=== PATIENT | female | born 1990 | race Caucasian/White ===

== ENCOUNTER 2019-09-06 09:07 | Emergency (ER) | payer OTHER, SELFPAY ==
[2019-09-06] MEDS ORDERED: NA CHLORIDE 0.9% 1,000 ML ONE (09:57)
[2019-09-06] MEDS ORDERED: KETOROLAC 30 MG/ML INJ ONE (09:57)
[2019-09-06 10:04] LABS: Hematocrit 39.5 % (36.0-45.0); RBC Red Blood Cell Count 4.66 M/uL (3.86-4.86)
[2019-09-06 10:05] LABS: Absolute Lymphocytes (CBC) 2.2 K/uL (0.7-4.9); Basophils % 0.6 % (0-1.3); Lymphocytes % 23.9 % (15.3-44.8); MPV 8.6 fL (7.6-11.3); Protime INR 1.13
[2019-09-06 10:37] LABS: ALT/SGPT 25 U/L (12-78); AST/SGOT 19 U/L (15-37); Albumin 3.5 g/dL (3.4-5.0); Alkaline Phosphatase 86 U/L (45-117); BUN Blood Urea Nitrogen 13 mg/dL (7-18); Bicarbonate 25 mmol/L (21-32); Bilirubin Direct < 0.1 mg/dL (0-0.2); Bilirubin Total 0.4 mg/dL (0.2-1.0); Glucose Level 93 mg/dL (74-106); Magnesium 2.1 mg/dL (1.8-2.4); NT PRO-BNP 161 pg/mL (<125); Potassium 4.1 mmol/L (3.5-5.1); Protein, Total 7.2 g/dL (6.4-8.2); Sodium Level 141 mmol/L (136-145); Troponin (Emerg Dept Use Only) < 0.02 ng/mL (0.0-0.045)
--- NOTE | 2019-09-06 10:50 | RAD REPORT ---
EXAM DESCRIPTION: RAD - Chest Single View - 09/06/2019 10:39 am CLINICAL HISTORY: Chest pain;SOB Chest pain. COMPARISON: No comparisons FINDINGS: Portable technique limits examination quality. The lungs are grossly clear. The heart is normal in size. No displaced fractures. IMPRESSION: No acute intrathoracic process suspected.
--- NOTE | 2019-09-06 11:48 | RAD REPORT ---
EXAM DESCRIPTION: CT - Chest Angio - 09/06/2019 11:37 am CLINICAL HISTORY: Chest pain. CHEST PAIN COMPARISON: Chest Single View dated 09/06/2019 TECHNIQUE: CT angiogram of the pulmonary arteries was performed with MIP. All CT scans are performed using dose optimization technique as appropriate and may include automated exposure control or mA/KV adjustment according to patient size. FINDINGS: No evidence of pulmonary thromboembolism. No acute aortic finding demonstrated. The lungs are clear. No significant pericardial or pleural fluid. No concerning bony finding. IMPRESSION: No evidence of pulmonary thromboembolism. No acute lung findings.
--- NOTE | 2019-09-06 12:36 | ER ---
Nurse's Notes [facility] Name: Ronel Zamorano Age: 29 yrs Sex: Female : 1990 Arrival Date: 09/06/2019 Time: 09:09 Bed 5 Private MD: Diagnosis: Chest pain, unspecified;Other chest pain Presentation: 09/06 09:17 Presenting complaint: Sharp left sided chest pain and SOB upon waking today. Transition hb of care: patient was not received from another setting of care. Onset of symptoms was September 06, 2019. Risk Assessment: Do you want to hurt yourself or someone else? Patient reports no desire to harm self or others. Initial Sepsis Screen: Does the patient meet any 2 criteria? No. Patient's initial sepsis screen is negative. Does the patient have a suspected source of infection? No. Patient's initial sepsis screen is negative. Care prior to arrival: None. 09:17 Method Of Arrival: Ambulatory hb 09:17 Acuity: BARBARA 3 hb Triage Assessment: 09:20 General: Appears in no apparent distress. comfortable, obese, Behavior is cooperative, bp appropriate for age, anxious. Pain: Complains of pain in chest. EENT: No deficits noted. Neuro: No deficits noted. Cardiovascular: Rhythm is sinus rhythm. Respiratory: No deficits noted. GI: No signs and/or symptoms were reported involving the gastrointestinal system. : No signs and/or symptoms were reported regarding the genitourinary system. Derm: No deficits noted. Musculoskeletal: No deficits noted. 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 - Social history:: Smoking status: Patient/guardian denies using tobacco, Stopped _ months ago 4. - Ebola Screening: : No symptoms or risks identified at this time. Screenin:20 Abuse screen: Denies threats or abuse. Denies injuries from another. Nutritional hb screening: No deficits noted. Tuberculosis screening: No symptoms or risk factors identified. Fall Risk None identified. Assessment: 09:20 General: SEE TRIAGE NOTE. Pain: Pain does not radiate. Pain began 2 hours ago. bp Cardiovascular: Rhythm is sinus rhythm. 09:50 Reassessment: PT ACUTELY BRADYCARDIC, HYPOTENSIVE AND LIGHT-HEADED. MD AT B/S. PT bp PLACED IN SUPINE POSITION AND FLUIDS INITIATED. 10:44 Reassessment: IVF INFUSING, PT STATES RELIEF OF NEAR-SYNCOPE S/S. VS STABLE ON MONITOR. bp 11:56 Reassessment: PT RETURNED FROM RADIOLOGY, CT CHEST RESULTS PENDING. NO ACUTE S/S AT bp THIS TIME. 12:57 Reassessment: PT D/C HOME AMBULATORY WITH FAMILY, DX WITH UNSPECIFIED CHEST PAIN. bp Vital Signs: 09:19 BP 145 / 90; Pulse 81; Resp 24; Temp 97.8; Pulse Ox 100% on R/A; Weight 113.4 kg; hb Height 5 ft. 3 in. (160.02 cm); Pain 8/10; 10:44 BP 119 / 75; Pulse 69; Resp 19; Pulse Ox 100% ; bp 11:56 BP 116 / 63; Pulse 66; Resp 17; Pulse Ox 100% ; bp 12:40 BP 119 / 67; Pulse 66; Resp 18; Temp 98; Pulse Ox 100% ; bp 09:19 Body Mass Index 44.29 (113.40 kg, 160.02 cm) hb ED Course: 09:09 Patient arrived in ED. ag5 09:12 Jim Dietrich MD is Attending Physician. kdr 09:18 Triage completed. hb 09:19 Arm band placed on. hb 09:27 Everett Boothe, LEROY is Primary Nurse. bp 09:50 Inserted saline lock: 22 gauge in right hand, using aseptic technique. Blood collected. bp Patient maintains SpO2 saturation greater than 95% on room air. 09:53 EKG done, by ED staff, reviewed by Jim Dietrich MD. jb1 10:03 Patient has correct armband on for positive identification. Placed in gown. Bed in low bp position. Call light in reach. Side rails up X2. Adult w/ patient. quality assurance monitor final on. Pulse ox on. NIBP on. 10:37 Radiology exam delayed due to lab results not completed at this time. (BUN/Creatinine). nj 10:39 XRAY Chest (1 view) In Process Unspecified. EDMS 11:34 Inserted saline lock: 22 gauge in left antecubital area, using aseptic technique. jb1 11:37 CT Chest Angio In Process Unspecified. EDMS 12:58 No provider procedures requiring assistance completed. IV discontinued, intact, bp bleeding controlled, No redness/swelling at site. Pressure dressing applied. Administered Medications: 09:55 Drug: TORadol - Ketorolac 15 mg Route: IVP; Site: right hand; bp 12:59 Follow up: Response: Pain is decreased bp 09:55 Drug: NS 0.9% 1000 ml Route: IV; Rate: 1 bolus; Site: right hand; bp 12:59 Follow up: IV Status: Completed infusion; IV Intake: 1000ml bp Intake: 12:59 IV: 1000ml; Total: 1000ml. bp Outcome: 12:35 Discharge ordered by MD. kdr 12:58 Discharged to home ambulatory, with family. bp 12:58 Condition: stable 12:58 Discharge instructions given to patient, Instructed on discharge instructions, follow up and referral plans. Demonstrated understanding of instructions, follow-up care. 12:59 Patient left the ED. bp Signatures: Dispatcher [employer] EDMS Carlo Londono jb1 Jim Dietrich MD MD kdr Baxter, Heather, RN RN Jules Flores Brian RN RN Jd Allen ag5
--- NOTE | 2019-09-06 12:36 | EDPHYS ---
Physician Documentation [facility] Name: Ronel Zamorano Age: 29 yrs Sex: Female : 1990 Arrival Date: 09/06/2019 Time: 09:09 Bed 5 Private MD: ED Physician Jim Dietrich HPI: 09/06 10:18 This 29 yrs old Female presents to ER via Ambulatory with complaints of Chest kdr Pain. 10:18 The patient or guardian reports chest pain that is located primarily in the anterior kdr chest wall, bilaterally. The pain does not radiate. Associated signs and symptoms: Pertinent positives: shortness of breath. The chest pain is described as sharp. Duration: The patient or guardian reports multiple episodes, that are intermittent, that wax and wane, with no pattern. Modifying factors: The symptoms are alleviated by remaining still, the symptoms are aggravated by cough, deep breath, movement, twisting torso. Severity of pain: At its worst the pain was mild moderate just prior to arrival, in the emergency department the pain is unchanged. The patient has not experienced similar symptoms in the past. The patient has not recently seen a physician. The patient was laying in bed at the time of onset - she has not had this before. 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 - Social history:: Smoking status: Patient/guardian denies using tobacco, Stopped _ months ago 4. - Ebola Screening: : No symptoms or risks identified at this time. ROS: 10:18 Constitutional: Negative for fever, chills, and weight loss, Eyes: Negative for injury, kdr pain, redness, and discharge, Neck: Negative for injury, pain, and swelling, Respiratory: Negative for shortness of breath, cough, wheezing, and pleuritic chest pain, Abdomen/GI: Negative for abdominal pain, nausea, vomiting, diarrhea, and constipation, Back: Negative for injury and pain, : Negative for injury, bleeding, discharge, and swelling, MS/Extremity: Negative for injury and deformity, Skin: Negative for injury, rash, and discoloration, Neuro: Negative for headache, weakness, numbness, tingling, and seizure activity. Psych: Negative for depression, anxiety, suicide ideation, homicidal ideation, and hallucinations, Allergy/Immunology: Negative for hives, rash, and allergies, Endocrine: Negative for neck swelling, polydipsia, polyuria, polyphagia, and marked weight changes, Hematologic/Lymphatic: Negative for swollen nodes, abnormal bleeding, and unusual bruising. 10:18 Cardiovascular: Positive for chest pain, Negative for edema, orthopnea, palpitations, paroxysmal nocturnal dyspnea, acute changes. Exam: 10:18 Constitutional: This is a well developed, well nourished patient who is awake, alert, kdr and in no acute distress. Head/Face: Normocephalic, atraumatic. Eyes: Pupils equal round and reactive to light, extra-ocular motions intact. Lids and lashes normal. Conjunctiva and sclera are non-icteric and not injected. Cornea within normal limits. Periorbital areas with no swelling, redness, or edema. Neck: Trachea midline, no thyromegaly or masses palpated, and no cervical lymphadenopathy. Supple, full range of motion without nuchal rigidity, or vertebral point tenderness. No Meningismus. Chest/axilla: Normal chest wall appearance and motion. Nontender with no deformity. No lesions are appreciated. Cardiovascular: Regular rate and rhythm with a normal S1 and S2. No gallops, murmurs, or rubs. Normal PMI, no JVD. No pulse deficits. Respiratory: Lungs have equal breath sounds bilaterally, clear to auscultation and percussion. No rales, rhonchi or wheezes noted. No increased work of breathing, no retractions or nasal flaring. Abdomen/GI: Soft, non-tender, with normal bowel sounds. No distension or tympany. No guarding or rebound. No evidence of tenderness throughout. Back: No spinal tenderness. No costovertebral tenderness. Full range of motion. Skin: Warm, dry with normal turgor. Normal color with no rashes, no lesions, and no evidence of cellulitis. MS/ Extremity: Pulses equal, no cyanosis. Neurovascular intact. Full, normal range of motion. Neuro: Awake and alert, GCS 15, oriented to person, place, time, and situation. Cranial nerves II-XII grossly intact. Motor strength 5/5 in all extremities. Sensory grossly intact. Cerebellar exam normal. Normal gait. Psych: Awake, alert, with orientation to person, place and time. Behavior, mood, and affect are within normal limits. Vital Signs: 09:19 BP 145 / 90; Pulse 81; Resp 24; Temp 97.8; Pulse Ox 100% on R/A; Weight 113.4 kg; hb Height 5 ft. 3 in. (160.02 cm); Pain 8/10; 10:44 BP 119 / 75; Pulse 69; Resp 19; Pulse Ox 100% ; bp 11:56 BP 116 / 63; Pulse 66; Resp 17; Pulse Ox 100% ; bp 12:40 BP 119 / 67; Pulse 66; Resp 18; Temp 98; Pulse Ox 100% ; bp 09:19 Body Mass Index 44.29 (113.40 kg, 160.02 cm) hb MDM: 10:18 HEART Score: History: Slightly Suspicious (0), ECG: Normal (0), Age: < or = 45 years kdr (0), Risk Factors: No Risk Factors Known (0), Total Score = 0. Data reviewed: vital signs, nurses notes, lab test result(s), EKG, radiologic studies. Counseling: I had a detailed discussion with the patient and/or guardian regarding: the historical points, exam findings, and any diagnostic results supporting the discharge/admit diagnosis, lab results, radiology results. 10:25 ED course: The SO informed me that the patient took a deep breath for the CXR, felt a kdr "pop" and her pain immediately resolved - 0 pain now.. 12:35 Patient medically screened. kdr 09/06 09:32 Order name: Basic Metabolic Panel; Complete Time: 10:43 kdr 09/06 09:32 Order name: CBC with Diff; Complete Time: 10:24 kdr 09/06 09:32 Order name: LFT's; Complete Time: 10:43 kdr 09/06 09:32 Order name: Magnesium; Complete Time: 10:43 kdr 09/06 09:32 Order name: NT PRO-BNP; Complete Time: 10:43 kdr 09/06 09:32 Order name: PT-INR; Complete Time: 10:24 kdr 09/06 09:32 Order name: Troponin (emerg Dept Use Only); Complete Time: 10:43 [facility] 09/06 09:32 Order name: XRAY Chest (1 view); Complete Time: 11:02 [facility] 09/06 09:32 Order name: EKG; Complete Time: 09:33 [facility] 09/06 09:32 Order name: Cardiac monitoring; Complete Time: 09:53 [facility] 09/06 09:34 Order name: D-Dimer; Complete Time: 10:24 [facility] 09/06 10:24 Order name: CT Chest Angio; Complete Time: 12:34 [facility] 09/06 09:32 Order name: EKG - Nurse/Tech; Complete Time: 09:53 [facility] 09/06 09:32 Order name: IV Saline Lock; Complete Time: 09:53 [facility] 09/06 09:32 Order name: Labs collected and sent; Complete Time: 09:53 [facility] 09/06 09:32 Order name: O2 Per Protocol; Complete Time: 09:34 [facility] 09/06 09:32 Order name: O2 Sat Monitoring; Complete Time: 09:34 [facility] Administered Medications: 09:55 Drug: TORadol - Ketorolac 15 mg Route: IVP; Site: right hand; bp 12:59 Follow up: Response: Pain is decreased bp 09:55 Drug: NS 0.9% 1000 ml Route: IV; Rate: 1 bolus; Site: right hand; bp 12:59 Follow up: IV Status: Completed infusion; IV Intake: 1000ml bp Disposition: 09/06/19 12:35 Discharged to Home. Impression: Chest pain, unspecified, Other chest pain. - Condition is Stable. - Discharge Instructions: Chest Wall Pain, [id number], Nonspecific Chest Pain, [id number]. - Medication Reconciliation Form, Thank You Letter form. - Follow up: Private Physician; When: 2 - 3 days; Reason: If symptoms return, Further diagnostic work-up, Recheck today's complaints, Continuance of care, Re-evaluation by your physician. - Problem is new. - Symptoms are resolved. Signatures: Dispatcher [employer] EDMS Jim Dietrich MD MD kdr Emily Anand, LEROY RN Everett Boothe RN RN bp Corrections: (The following items were deleted from the chart) 12:59 12:35 09/06/2019 12:35 Discharged to Home. Impression: Chest pain, unspecified; Other bp chest pain. Condition is Stable. Forms are Medication Reconciliation Form, Thank You Letter, Antibiotic Education, Prescription Opioid Use. Follow up: Private Physician; When: 2 - 3 days; Reason: If symptoms return, Further diagnostic work-up, Recheck today's complaints, Continuance of care, Re-evaluation by your physician. Problem is new. Symptoms are resolved. kdr
[2019-09-06 13:09] VITALS: O2SAT 100
[2019-09-06 13:13] VITALS: BP 119/67; TEMP 98
--- NOTE | 2019-09-06 14:32 | EKG ---
Test Date: 2019-09-06 Test Time: 09:39:57 Quality Measurement Specialist: LARRY MEASUREMENT RESULTS: Intervals: Rate: 70 NJ: 160 QRSD: 82 QT: 398 QTc: 429 [place]: P: 43 NJ: 160 QRS: 61 T: 41 INTERPRETIVE STATEMENTS: Normal sinus rhythm with sinus arrhythmia Normal ECG Compared to ECG 06/07/1996 14:42:00 No significant changes Electronically Signed On 09-06-19 14:30:33 MANAGER PRODUCT by Maury Aguirre
== END 2019-09-06 12:59 | disposition home or self-care (01) ==
LOC: ER 09:07
DX: R07.9 Chest pain, unspecified (principal); F41.9 Anxiety disorder, unspecified
CPT/HCPCS: 36415; 71045; 71275; 80048; 80076; 83735; 83880; 84484; 85025; 85379; 85610; 93005; 96361; 96374; 99285; J7030; Q9967

== ENCOUNTER 2020-08-01 15:59 | Emergency (ER) | payer SELFPAY ==
--- NOTE | 2020-08-01 17:22 | ER ---
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 LLE pain, swelling, ll1 bruising from knee down to foot. Abrasions noted just below the knee. No LOC, denies other injuries/pain. Coronavirus screen: Client denies travel out of the [place] in the last 14 days. At this time, the client does not indicate any symptoms associated with coronavirus-19. Ebola Screen: Patient denies travel to an Ebola-affected area in the 21 days before illness onset. Initial Sepsis Screen: Does the patient meet any 2 criteria? HR > 90 bpm. No. Patient's initial sepsis screen is negative. Does the patient have a suspected source of infection? Yes: Skin breakdown/wound Bone or joint infection. Risk Assessment: Do you want to hurt yourself or someone else? Patient reports no desire to harm self or others. Onset of symptoms was August 01, 2020. 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 - Social history:: Smoking status: Patient denies any tobacco usage or history of. - Family history:: not pertinent. - Hospitalizations: : No recent hospitalization is reported. Screenin:35 Abuse screen: Denies threats or abuse. Nutritional screening: No deficits noted. vg1 Tuberculosis screening: No symptoms or risk factors identified. Fall Risk No fall in past 12 months (0 pts). No secondary diagnosis (0 pts). No IV (0 pts). Ambulatory Aid- None/Bed Rest/Nurse Assist (0 pts). Gait- Impaired (20 pts.). Mental Status- Oriented to own ability (0 pts). Total Eckert Fall Scale indicates No Risk (0-24 pts). Assessment: 16:35 General: Appears in no apparent distress. comfortable, Behavior is calm, cooperative. vg1 16:35 Pain: Complains of pain in left knee and left foot Pain currently is 5 out of 10 on a vg1 pain scale. Neuro: Level of Consciousness is awake, alert, obeys commands, Oriented to person, place, time. Cardiovascular: Patient's skin is warm and dry. Pulses are palpable in right dorsalis pedis artery and left dorsalis pedis artery. Respiratory: Airway is patent Respiratory effort is even, unlabored. GI: No signs and/or symptoms were reported involving the gastrointestinal system. : No signs and/or symptoms were reported regarding the genitourinary system. EENT: No signs and/or symptoms were reported regarding the EENT system. Derm: Skin is pink, warm \T\ dry. Bruising that is on left foot.. Musculoskeletal: Range of motion: limited in left knee and left ankle. 17:43 Reassessment: Pt waiting for xray reading before being discharged. sv Vital Signs: 16:06 Pulse 100; Resp 18; Temp 98.6; Pulse Ox 100% ; Weight 108.86 kg; Height 5 ft. 3 in. ll1 (160.02 cm); Pain 4/10; 16:09 BP 151 / 95; ll1 17:00 BP 136 / 69; Pulse 87; Resp 16; Pulse Ox 99% on R/A; vg1 18:00 BP 128 / 92; Pulse 79; Resp 16; Pulse Ox 99% on R/A; vg1 16:06 Body Mass Index 42.51 (108.86 kg, 160.02 cm) ll1 ED Course: 16:01 Patient arrived in ED. ds1 16:03 Yomaira Gleason, RN is Primary Nurse. vg1 16:04 Chin Torres MD is Attending Physician. rn 16:08 Triage completed. ll1 16:09 Arm band placed on Patient placed in an exam room, on a stretcher. ll1 16:34 Xray at bedside. vg1 16:35 Patient has correct armband on for positive identification. Bed in low position. Call vg1 light in reach. Side rails up X 1. Adult w/ patient. 17:00 XRAY Foot LEFT 3 View In Process Unspecified. EDMS 18:32 Dressings: non-adherent dressing x 1 left knee. Alec wrap to left knee. Wound care: to jp3 abrasion, located on left knee was cleaned with Hibiclens, dressed with Neosporin. Wound care: Patient tolerated well. 18:47 No provider procedures requiring assistance completed. Patient did not have IV access vg1 during this emergency room visit. Administered Medications: No medications were administered Outcome: 17:21 Discharge ordered by MD. rn 18:47 Patient left the ED. ll1 18:47 Discharged to home ambulatory, with family. vg1 18:47 Condition: good 18:47 Discharge instructions given to patient, family, Instructed on discharge instructions, follow up and referral plans. Demonstrated understanding of instructions, follow-up care. Signatures: Dispatcher [employer] EDIA Ronel Kimble, RN RN Karo Aguero ds1 Chin Torres MD MD rn Pisarski, Jacob jp3 Yomaira Gleason RN RN vg1 Lis Briscoe RN RN 1
--- NOTE | 2020-08-01 17:22 | EDPHYS ---
Physician Documentation [facility] Name: Ronel Zamorano Age: 30 yrs Sex: Female : 1990 Arrival Date: 08/01/2020 Time: 16:01 Bed 20 Private MD: ED Physician Chin Torres HPI: 08/01 16:25 This 30 yrs old Female presents to ER via Wheelchair with complaints of Fall rn Injury. 16:25 Details of fall: The patient fell from an upright position, while walking. rn 16:26 Onset: The symptoms/episode began/occurred just prior to arrival. Associated injuries: rn The patient sustained left foot. Severity of symptoms: At their worst the symptoms were mild, in the emergency department the symptoms are unchanged. The patient has not experienced similar symptoms in the past. Reports slipped on porch, + hyperflexion left knee with scrape to knee, but reports pain only to left foot. No knee or ankle pain. . 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 - Social history:: Smoking status: Patient denies any tobacco usage or history of. - Family history:: not pertinent. - Hospitalizations: : No recent hospitalization is reported. ROS: 16:26 MS/Extremity: + left foot pain Skin: + abrasion to left knee rn Exam: 16:26 Constitutional: This is a well developed, well nourished patient who is awake, alert, rn and in no acute distress. MS/ Extremity: Pulses equal, no cyanosis. Neurovascular intact. Full, normal range of motion. Equal circumference. + small superficial abrasions left anterior knee. No ankle tenderness or painful ROM. + mild swelling top of foot without open wounds or focal tenderness. Vital Signs: 16:06 Pulse 100; Resp 18; Temp 98.6; Pulse Ox 100% ; Weight 108.86 kg; Height 5 ft. 3 in. ll1 (160.02 cm); Pain 4/10; 16:09 BP 151 / 95; ll1 17:00 BP 136 / 69; Pulse 87; Resp 16; Pulse Ox 99% on R/A; vg1 18:00 BP 128 / 92; Pulse 79; Resp 16; Pulse Ox 99% on R/A; vg1 16:06 Body Mass Index 42.51 (108.86 kg, 160.02 cm) ll1 MDM: 16:05 Patient medically screened. rn 17:21 Differential diagnosis: contusion, fracture, sprain, strain. Data reviewed: vital rn signs, nurses notes, radiologic studies, plain films, and as a result, I will discharge patient. Counseling: I had a detailed discussion with the patient and/or guardian regarding: the historical points, exam findings, and any diagnostic results supporting the discharge/admit diagnosis, radiology results, the need for outpatient follow up, to return to the emergency department if symptoms worsen or persist or if there are any questions or concerns that arise at home. Special discussion: I discussed with the patient/guardian in detail that at this point there is no indication for admission to the hospital. It is understood, however, that if the symptoms persist or worsen the patient needs to return immediately for re-evaluation. 08/01 16:19 Order name: XRAY Foot LEFT 3 View; Complete Time: 18:02 rn Administered Medications: No medications were administered Disposition: 08/01/20 17:21 Discharged to Home. Impression: Unspecified sprain of left foot. - Condition is Stable. - Discharge Instructions: Foot MASON Botello for Routine Care of Injuries. - Medication Reconciliation Form, Thank You Letter, Antibiotic Education, Prescription Opioid Use form. - Follow up: Private Physician; When: As needed; Reason: Recheck today's complaints, Re-evaluation by your physician. - Problem is new. - Symptoms have improved. Signatures: Dispatcher [employer] EDMS Chin Torres MD MD rn Lewis, Lynsay, RN RN ll1 Corrections: (The following items were deleted from the chart) 17:03 17:02 ED course: will medically clear patient, if clear from cause of delirium, then rn will obtain RENZO for transfer to psychiatric facility. . rn 18:47 17:21 08/01/2020 17:21 Discharged to Home. Impression: Unspecified sprain of left foot. ll1 Condition is Stable. Discharge Instructions: Foot Ayan RICE for Routine Care of Injuries. Forms are Medication Reconciliation Form, Thank You Letter, Antibiotic Education, Prescription Opioid Use. Follow up: Private Physician; When: As needed; Reason: Recheck today's complaints, Re-evaluation by your physician. Problem is new. Symptoms have improved. rn
--- NOTE | 2020-08-01 17:58 | RAD REPORT ---
EXAM DESCRIPTION: RAD - Foot Left 3 View - 08/01/2020 5:00 pm CLINICAL HISTORY: Pain;Swelling, trip and fall COMPARISON: No comparisons FINDINGS: No fracture, dislocation or periosteal reaction. No acute or destructive bony process. No air or foreign body in the soft tissues. IMPRESSION: Negative left foot examination.
[2020-08-04 01:25] VITALS: TEMP 98.6
[2020-08-04 01:27] VITALS: BP 136/69; O2SAT 99
== END 2020-08-01 18:47 | disposition home or self-care (01) ==
LOC: ER 15:59
DX: S93.602A Unspecified sprain of left foot, initial encounter (principal); W01.0XXA Fall on same level from slipping, tripping and stumbling without subsequent striking against object, initial encounter; Y93.9 Activity, unspecified; Y92.89 Other specified places as the place of occurrence of the external cause
CPT/HCPCS: 99284

== ENCOUNTER 2023-01-20 20:54 | Inpatient (IN) | payer OTHER, SELFPAY ==
[2023-01-20 22:31] LABS: Absolute Lymphocytes (CBC) 1.3 K/uL (0.7-4.9); Hematocrit 44.9 % (36.0-45.0); Lymphocytes % 5.4 % (15.3-44.8); MCV 84.6 fL (80-100); MPV 8.6 fL (7.6-11.3)
[2023-01-20 22:53] LABS: Albumin 4.2 g/dL (3.4-5.0); Bilirubin Total 0.6 mg/dL (0.2-1.0); Potassium 3.8 mEq/L (3.5-5.1); Protein, Total 8.5 g/dL (6.4-8.2)
[2023-01-20] MEDS ORDERED: NA CHLORIDE 0.9% 1,000 ML ONE (22:58)
[2023-01-20] MEDS ORDERED: ONDANSETRON 4 MG/2 ML VIAL ONE (22:58)
[2023-01-20] MEDS ORDERED: FAMOTIDINE 20 MG/2 ML VIAL IV ONE (22:58)
[2023-01-20 23:59] LABS: Platelet Estimate ADEQ; White Blood Cell Scan OK (OK)
[2023-01-21 00:01] LABS: Specific Gravity 1.032 (1.005-1.030)
[2023-01-21 00:04] LABS: Specific Gravity > 1.030 (1.005-1.030); Urine Bacteria <20 /HPF (<20); Urine Bilirubin 1+ (Negative); Urine Blood Negative (Negative); Urine Clarity Extremely Turbid (Clear); Urine Color Yellow (Yellow); Urine Glucose NEGATIVE (Negative); Urine Mucus 4+ /HPF (None Seen); Urine Protein 2+ (Negative); Urine RBC <5 /HPF (None Seen); Urine Urobilinogen 1+ (Normal); Urine pH 5.5 (5.0-7.0)
[2023-01-21] MEDS ORDERED: NA CHLORIDE 0.9% 2,000 ML ONE (01:00)
--- NOTE | 2023-01-21 01:21 | ER ---
Nurse's Notes [facility] Name: Ronel Solano Age: 32 yrs Sex: Female : 1990 Arrival Date: 01/20/2023 Time: 20:54 Bed 18 Private MD: Diagnosis: Diarrhea, unspecified;Nausea with vomiting, unspecified;Elevated white blood cell count, unspecified Presentation: 01/20 21:42 Chief complaint: Patient states: nausea, vomiting x 15 episodes and diarrhea x 10-15 pf1 episodes,onset 1200 today after eating a breakfast corn dog. Patient denies any abdominal pain at this time. Coronavirus screen: Vaccine status: Patient reports being unvaccinated. Client denies travel out of the [place] in the last 14 days. Client presents with at least one sign or symptom that may indicate coronavirus-19. Ebola Screen: Patient negative for fever greater than or equal to 101.5 degrees Fahrenheit, and additional compatible Ebola Virus Disease symptoms. Initial Sepsis Screen: Does the patient meet any 2 criteria? HR > 90 bpm. No. Patient's initial sepsis screen is negative. Does the patient have a suspected source of infection? No. Patient's initial sepsis screen is negative. Risk Assessment: Do you want to hurt yourself or someone else? Patient reports no desire to harm self or others. 21:42 Method Of Arrival: Wheelchair pf1 21:42 Acuity: BARBARA 3 pf1 21:54 Onset of symptoms was January 21, 2023. 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 Last tetanus immunization: > 10 years ago Flu vaccine is not up to date. - Social history:: Smoking status: Patient/guardian denies using tobacco, the patient reports quitting approximately 3 years ago, Patient uses alcohol, only on a social basis. Patient/guardian denies using alcohol. Screenin:54 [facility] ED Fall Risk Assessment (Adult) History of falling in the last 3 months, ha1 including since admission No falls in past 3 months (0 pts) Confusion or Disorientation No (0 pts) Intoxicated or Sedated No (0 pts) Impaired Gait No (0 pts) Mobility Assist Device Used No (0 pt) Altered Elimination No (0 pt) Score/Fall Risk Level 0 - 2 = Low Risk Oriented to surroundings, Maintained a safe environment, Educated pt \T\ family on fall prevention, incl call for assistance when getting out of bed. 23:09 Abuse screen: Denies threats or abuse. Denies injuries from another. Nutritional ha1 screening: No deficits noted. Tuberculosis screening: No symptoms or risk factors identified. Assessment: 21:54 General: Appears uncomfortable, Behavior is calm, cooperative. Pain: Complains of pain ha1 in abdomen Pain does not radiate. Pain currently is 5 out of 10 on a pain scale. Neuro: Level of Consciousness is awake, alert, obeys commands, Oriented to person, place, time, situation. Cardiovascular: Patient's skin is warm and dry. Respiratory: Airway is patent Respiratory effort is even, unlabored, Respiratory pattern is regular, symmetrical. GI: Abdomen is non-distended, obese, Bowel sounds present X 4 quads. Abd is soft and non tender X 4 quads. Reports diarrhea, nausea, vomiting. : No signs and/or symptoms were reported regarding the genitourinary system. Derm: Skin is pink, warm \T\ dry. Musculoskeletal: Circulation, motion, and sensation intact. 22:50 Reassessment: Patient and/or family updated on plan of care and expected duration. Pain ha1 level reassessed. Patient is alert, oriented x 3, equal unlabored respirations, skin warm/dry/pink. Patient states symptoms have improved. 23:50 Reassessment: Patient and/or family updated on plan of care and expected duration. Pain ha1 level reassessed. Patient is alert, oriented x 3, equal unlabored respirations, skin warm/dry/pink. Patient states feeling better. Patient states symptoms have improved. 01/21 00:50 Reassessment: Patient and/or family updated on plan of care and expected duration. Pain ha1 level reassessed. Patient is alert, oriented x 3, equal unlabored respirations, skin warm/dry/pink. Patient states feeling better. Patient states symptoms have improved. 01:50 Reassessment: Patient and/or family updated on plan of care and expected duration. Pain ha1 level reassessed. Patient is alert, oriented x 3, equal unlabored respirations, skin warm/dry/pink. Patient states feeling better. Patient states symptoms have improved. 02:50 Reassessment: Patient and/or family updated on plan of care and expected duration. Pain ha1 level reassessed. Patient is alert, oriented x 3, equal unlabored respirations, skin warm/dry/pink. Vital Signs: 01/20 21:42 BP 100 / 79; Pulse 106; Resp 18; Temp 97.3; Pulse Ox 97% on R/A; Weight 102.97 kg; pf1 Height 5 ft. 3 in. ; Pain 0/10; 22:00 BP 125 / 77; Pulse 107; Resp 18 S; Pulse Ox 100% on R/A; ha1 22:50 BP 122 / 75; Pulse 108; Resp 18 S; Pulse Ox 100% on R/A; ha1 06 00:15 BP 114 / 72; Pulse 96; Resp 19; Pulse Ox 99% on R/A; ha1 01:30 BP 145 / 88; Pulse 97; Resp 18 S; Pulse Ox 100% on R/A; ha1 02:30 BP 130 / 80; Pulse 98; Resp 18 S; Pulse Ox 100% on R/A; ha1 03:00 BP 127 / 66; Pulse 100; Resp 16 S; Pulse Ox 100% on R/A; ha1 01/20 21:42 Body Mass Index 40.21 (102.97 kg, 160.02 cm) pf1 01/20 21:42 Pain Scale: Adult pf1 ED Course: 01/20 20:56 Patient arrived in ED. kj1 21:03 Babak Medley PA is PHCP. cp 21:03 Roque Hallman MD is Attending Physician. cp 21:50 Triage completed. pf1 21:54 Arm band placed on right wrist. ha1 21:54 Patient has correct armband on for positive identification. Placed in gown. Bed in low ha1 position. Call light in reach. Side rails up X 1. 22:08 Melissa Caldera RN is Primary Nurse. ha1 22:20 Inserted saline lock: 22 gauge in right antecubital area, using aseptic technique. ha1 Blood collected. 22:22 CBC with Diff Sent. ha1 22:22 CMP Sent. ha1 22:22 Lipase Sent. ha1 23:03 CBC with Diff Sent. ha1 23:18 Radiology exam delayed due to test not completed at this time. eh4 01/21 00:44 CT Abd/Pelvis - IV Contrast Only In Process Unspecified. EDWV 01:19 Trung Perkins MD is Hospitalizing Provider. cp 04:00 No provider procedures requiring assistance completed. ha1 04:00 Patient admitted, IV remains in place. ha1 08:53 Primary Nurse role handed off by Melissa Caldera RN eb Administered Medications: 01/20 22:40 Drug: NS 0.9% IV 1000 ml Route: IV; Rate: 1 bolus; Site: right antecubital; ha1 22:42 Drug: Ondansetron IVP 4 mg Route: IVP; Site: right antecubital; ha1 22:46 Drug: Famotidine IVP 20 mg Route: IVP; Site: right antecubital; ha1 01/21 01:01 Drug: NS 0.9% IV 1000 ml Route: IV; Rate: 1 bolus; Site: right antecubital; ha1 01:01 Drug: NS 0.9% IV 1000 ml Route: IV; Rate: 125 ml/hr; Site: right antecubital; ha1 02:20 Drug: metroNIDAZOLE IVPB 500 mg Volume: 100 ml; Route: IVPB; Infused Over: 30 mins; 1 Site: right antecubital; 03:00 Drug: Ciprofloxacin IVPB 400 mg Volume: 200 ml; Route: IVPB; Infused Over: 60 mins; ha1 Site: right antecubital; Medication: 04:00 VIS not applicable for this client. ha1 Outcome: 01:20 Decision to Hospitalize by Provider. cp 04:00 Admitted to ER Hold. Please see [facility] for further documentation. ha1 04:00 Condition: stable 04:00 Discharge instructions given to patient, family, Instructed on the need for admit. 16:40 Patient left the ED. aa5 Signatures: Dispatcher [employer] EDWV Johana Schwartz RN RN aa5 Babak Medley PA PA cp Botello, Elizabeth eb Jackson, Kandis kj1 Melissa Caldera, RN RN 1 [facility] Ruthie Yañez RN RN pf1
--- NOTE | 2023-01-21 01:21 | EDPHYS ---
Physician Documentation [facility] Name: Ronel Solano Age: 32 yrs Sex: Female : 1990 Arrival Date: 01/20/2023 Time: 20:54 Bed 18 Private MD: ED Physician Roque Hallman HPI: 01/20 21:27 This 32 yrs old Female presents to ER via Unassigned with complaints of Abdominal Pain, cp Nausea/Vomiting/Diarrhea. 21:27 The patient presents with N/V/D. Onset: The symptoms/episode began/occurred today, has cp been continuous. Associated signs and symptoms: Pertinent negatives: blood in stools, chest pain, constipation, fever, shortness of breath, vomiting blood. 21:27 Patient reports symptoms started shortly after eating breakfast corn dog . 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 Last tetanus immunization: > 10 years ago Flu vaccine is not up to date. - Social history:: Smoking status: Patient/guardian denies using tobacco, the patient reports quitting approximately 3 years ago, Patient uses alcohol, only on a social basis. Patient/guardian denies using alcohol. ROS: 21:30 Constitutional: Positive for chills, poor PO intake, Negative for fever. cp 21:30 Eyes: Negative for injury, pain, redness, and discharge. cp 21:30 ENT: Negative for drainage from ear(s), ear pain, sore throat, difficulty swallowing, difficulty handling secretions. 21:30 Respiratory: Negative for cough, shortness of breath, wheezing. 21:30 Abdomen/GI: Positive for abdominal pain, nausea, vomiting, and diarrhea, Negative for hematemesis, black/tarry stool, rectal bleeding. 21:30 : Negative for urinary symptoms. 21:30 Skin: Negative for cellulitis, rash. 21:30 Neuro: Positive for weakness, Negative for altered mental status, dizziness, headache. 21:30 All other systems are negative. Exam: 21:35 Constitutional: The patient appears in no acute distress, alert, awake, cp non-diaphoretic, non-toxic, well developed, well nourished, obese, uncomfortable. 21:35 Head/Face: Normocephalic, atraumatic. cp 21:35 Eyes: Periorbital structures: appear normal, Conjunctiva: normal, no exudate, no injection, Sclera: no appreciated abnormality, Lids and lashes: appear normal, bilaterally. 21:35 ENT: External ear(s): are unremarkable, Nose: is normal, Mouth: Lips: moist, Oral mucosa: pink and intact, moist, Posterior pharynx: is normal, airway is patent, no erythema, no exudate. 21:35 Neck: ROM/movement: is normal, is supple, without pain, no range of motions limitations. 21:35 Chest/axilla: Inspection: normal. 21:35 Cardiovascular: Rate: tachycardic, Rhythm: regular. 21:35 Respiratory: the patient does not display signs of respiratory distress, Respirations: normal, no use of accessory muscles, no retractions, labored breathing, is not present, Breath sounds: are clear throughout, no decreased breath sounds, no stridor, no wheezing. 21:35 Abdomen/GI: Inspection: obese Bowel sounds: active, all quadrants, Palpation: soft, in all quadrants, mild abdominal tenderness, in the abdomen diffusely, rebound tenderness, is not appreciated, involuntary guarding, is not appreciated. 21:35 Back: pain, is absent, ROM is normal. 21:35 Skin: no rash present. 21:35 Neuro: Orientation: to person, place \T\ time. Mentation: is normal, Motor: moves all fours, strength is normal, Sensation: is normal. Vital Signs: 21:42 BP 100 / 79; Pulse 106; Resp 18; Temp 97.3; Pulse Ox 97% on R/A; Weight 102.97 kg; pf1 Height 5 ft. 3 in. ; Pain 0/10; 22:00 BP 125 / 77; Pulse 107; Resp 18 S; Pulse Ox 100% on R/A; ha1 22:50 BP 122 / 75; Pulse 108; Resp 18 S; Pulse Ox 100% on R/A; ha1 10 00:15 BP 114 / 72; Pulse 96; Resp 19; Pulse Ox 99% on R/A; ha1 01:30 BP 145 / 88; Pulse 97; Resp 18 S; Pulse Ox 100% on R/A; ha1 02:30 BP 130 / 80; Pulse 98; Resp 18 S; Pulse Ox 100% on R/A; ha1 03:00 BP 127 / 66; Pulse 100; Resp 16 S; Pulse Ox 100% on R/A; ha1 01/20 21:42 Body Mass Index 40.21 (102.97 kg, 160.02 cm) pf1 01/20 21:42 Pain Scale: Adult pf1 MDM: 01/20 22:07 Patient medically screened. cp 23:30 Differential diagnosis: diverticulitis, gastritis, Peritonitis, Ureterolithiasis, cp urinary tract infection, enteritis, colitis. 01/21 01:20 Data reviewed: vital signs, nurses notes, lab test result(s), radiologic studies, CT cp scan. 01:20 Consideration of Admission/Observation Patient was admitted/placed on observation. cp Management of patient was discussed with the following: Hospitalist: Ashkan Pemberton, PLATE FITTER will admit after discussion. 01/20 22:07 Order name: CBC with Diff; Complete Time: 00:32 cp 01/21 00:32 Interpretation: Normal except: WBC 24.80; RBC 5.30; HGB 15.1; PLT 502; MUMTAZ% 87.2; LYM% cp 5.4; NEUT A 21.6; MNA 1.7. 01/20 22:07 Order name: CMP; Complete Time: 00:32 cp 01/21 00:33 Interpretation: Normal except: GLUC 151; CRE 1.12; GFR 67; AST 10; TP 8.5; GLOB 4.3; cp A/G 1.0. 01/20 22:07 Order name: Lipase; Complete Time: 00:32 cp 01/20 22:07 Order name: Test, Urine; Complete Time: 00:32 cp 01/21 00:33 Interpretation: Reviewed. cp 01/20 22:07 Order name: Urinalysis w/ reflexes; Complete Time: 00:32 cp 01/21 00:33 Interpretation: Normal except: UCLA Extremely Turbid; Urine SG > 1.030; UBILI 1+; UKET cp 3+; UPROT 2+; UUROB 1+; UESTR 75; MUCUS 4+; HYAL >20. 01/20 22:36 Order name: CBC Smear Scan; Complete Time: 00:32 EDMS 01/21 01:07 Order name: Lactate w/ 2H reflex if indic.; Complete Time: 05:20 cp 01/21 01:08 Order name: Ova And Parasites cp 01/21 01:08 Order name: Rotavirus Antigen cp 01/21 01:08 Order name: Stool Culture cp 01/21 01:08 Order name: CDIFF cp 01/21 01:10 Order name: Blood Culture Adult (2) cp 01/21 05:51 Order name: CBC with Automated Diff EDMS 01/21 06:06 Order name: Basic Metabolic Panel EDMS 01/21 06:06 Order name: T4 Free EDMS 01/21 06:06 Order name: Magnesium EDMS 01/21 06:06 Order name: Thyroid Stimulating Hormone EDMS 01/21 06:43 Order name: Manual Differential EDMS 01/20 23:12 Order name: CT Abd/Pelvis - IV Contrast Only cp 01/20 22:07 Order name: IV Saline Lock; Complete Time: 22:22 cp 01/20 22:07 Order name: Labs collected and sent; Complete Time: 22:22 cp Administered Medications: 01/20 22:40 Drug: NS 0.9% IV 1000 ml Route: IV; Rate: 1 bolus; Site: right antecubital; 1 22:42 Drug: Ondansetron IVP 4 mg Route: IVP; Site: right antecubital; ha1 22:46 Drug: Famotidine IVP 20 mg Route: IVP; Site: right antecubital; ha1 01/21 01:01 Drug: NS 0.9% IV 1000 ml Route: IV; Rate: 1 bolus; Site: right antecubital; ha1 01:01 Drug: NS 0.9% IV 1000 ml Route: IV; Rate: 125 ml/hr; Site: right antecubital; ha1 02:20 Drug: metroNIDAZOLE IVPB 500 mg Volume: 100 ml; Route: IVPB; Infused Over: 30 mins; ha1 Site: right antecubital; 03:00 Drug: Ciprofloxacin IVPB 400 mg Volume: 200 ml; Route: IVPB; Infused Over: 60 mins; ha1 Site: right antecubital; Disposition Summary: 01/21/23 01:20 Hospitalization Ordered Hospitalization Status: Inpatient Admission cp Provider: Trung Perkins cp Condition: Stable cp Problem: new cp Symptoms: have improved cp Bed/Room Type: Standard cp Location: Telemetry/MedSurg (Inpatient)(01/21/23 15:48) eb Room Assignment: 411(01/21/23 16:08) eb Diagnosis - Diarrhea, unspecified cp - Nausea with vomiting, unspecified cp - Elevated white blood cell count, unspecified cp Forms: - Medication Reconciliation Form cp - SBAR form cp Signatures: Dispatcher [employer] EDMS Ashkan Pemberton, OPERATIONS CONTROLLER-C OPERATIONS CONTROLLER-Cla1 Babak Medley PA PA cp Joellen Gleason, RN RN Candie Arambula Heidy RN RN ha1 Ruthie Yañez RN RN pf1 Corrections: (The following items were deleted from the chart) 01:55 01:20 Telemetry/MedSurg (observation) cp cg 01:55 01:20 cp cg 15:48 01:55 [facility] ER HOLD cg eb 15:48 01:55 ERHOLD- cg eb 16:08 15:48 [facility] eb
--- NOTE | 2023-01-21 01:45 | P.HP ---
Certification for Inpatient Patient admitted to: Inpatient With expected LOS: >2 Midnights Patient will require the following post-hospital care: None Practitioner: I am a practitioner with admitting privileges, knowledge of patient current condition, hospital course, and medical plan of care. Services: Services provided to patient in accordance with Admission requirements found in Title 42 Section 412.3 of the Code of Federal Regulations <Ashkan Pemberton - Last Filed: 01/21/23 01:41> Patient History Date of Service: 01/21/23 Reason for admission: Enterocolitis History of Present Illness: 32-year-old female with history of depression/anxiety, prediabetes presents emergency department chief complaint of nausea/vomiting/diarrhea she reports that her symptoms began this morning she has vomited greater than 15 times, has had diarrhea greater than 15 times. She does report episodes of nausea/diarrhea intermittently over the course of the last few months but nothing this severe ever. She does report that she had taken amoxicillin for strep throat around the of last month for 1 week. She was evaluated in the emergency department her labs are significant for marked leukocytosis white blood cell count 24.8 hemoglobin 15.1 platelets 502 creatinine 1.12 GFR 67 glucose 151 stool studies have been ordered. CT shows fluid-filled bowel, a nonspecific finding which can be seen in mild enterocolitis. No bowel wall thickening or obstruction. Normal appendix. - Past Medical/Surgical History Diabetic: No -: Depression/anxiety -: Prediabetes -: Rapelje teeth removed - 2012 -: Tonsils removed - patient doesn't remember the date -: Psychosocial/ Personal History: Lives at home with family. - Family History Father -: Heart disease, Diabetes Mother -: Hypertension - Social History Smoking Status: Never smoker Alcohol use: No CD- Drugs: No Caffeine use: Yes Place of Residence: Home <Ashkan Pemberton - Last Filed: 01/21/23 01:41> Date of Service: 01/21/23 <Trung Perkins - Last Filed: 01/21/23 12:17> Allergies No Known Drug Allergies Allergy (Verified 11/02/15 22:11) Unknown Home Medications: RX: Citalopram [Celexa*] 40 mg PO DAILY 01/21/23 Tirzepatide [Mounjaro] 10 mg SQ Q7D 01/21/23 Review of Systems 10-point ROS is otherwise unremarkable Gastrointestinal: Nausea, Vomiting, Abdominal Pain, Diarrhea <Ashkan Pemberton - Last Filed: 01/21/23 01:41> Physical Examination - Physical Exam General: Alert, In no apparent distress, Oriented x3, Obese HEENT: Atraumatic, PERRLA, Mucous membr. moist/pink, EOMI, Sclerae nonicteric Neck: Supple, 2+ carotid pulse no bruit, No LAD, Without JVD or thyroid abnormality Respiratory: Clear to auscultation bilaterally, Normal air movement Cardiovascular: Regular rate/rhythm, Normal S1 S2 Gastrointestinal: Normal bowel sounds, Tenderness (Mildl generalized abd tenderness) Musculoskeletal: No tenderness Integumentary: No rashes Neurological: Normal speech, Normal strength at 5/5 x4 extr, Normal tone, Normal affect Lymphatics: No axilla or inguinal lymphadenopathy - Studies Laboratory Data (last 24 hrs) 01/20/23 22:20: Sodium 136, Potassium 3.8, BUN 15, Creatinine 1.12 H, Glucose 151 H, Total Bilirubin 0.6, AST 10 L, ALT 20, Alkaline Phosphatase 108, Lipase 31 01/20/23 22:20: WBC 24.80 H, Hgb 15.1 H, Hct 44.9, Plt Count 502 H <Ashkan Pemberton - Last Filed: 01/21/23 01:41> - Studies Laboratory Data (last 24 hrs) 01/20/23 22:20: Sodium 136, Potassium 3.8, BUN 15, Creatinine 1.12 H, Glucose 151 H, Total Bilirubin 0.6, AST 10 L, ALT 20, Alkaline Phosphatase 108, Lipase 31 01/20/23 22:20: WBC 24.80 H, Hgb 15.1 H, Hct 44.9, Plt Count 502 H <Trung Perkins - Last Filed: 01/21/23 12:17> Assessment and Plan - Plan Assessment: Sepsis secondary to enterocolitis Intractable nausea/vomiting/diarrhea Depression/anxiety Plan: Sepsis secondary to enterocolitis Intractable nausea/vomiting/diarrhea Patient has taken antibiotics recently with amoxicillin on 12/31/2022 7-day course. Had been doing well until yesterday when she developed onset of copious nausea/vomiting/diarrhea greater than 15 episodes of each throughout the day. CT shows enterocolitis. SIRS criteria present including leukocytosis, tachycardia source of infection confirmed on CT with enterocolitis. Continue antibiotics Cipro/Flagyl. C. difficile/stool culture and other stool studies pending. N.p.o. tonight, advance as tolerated. Marked leukocytosis suspect component of this is reactive and related to hemoconcentration. Depression/anxiety Continue home medications. DVT PPX: Lovenox Code status: Full Discharge Plan: Home Plan to discharge in: 48 Hours - Advance Directives Does patient have a Living Will: No Does patient have a Durable POA for Healthcare: No - Code Status/Comfort Care Code Status Assessed: Yes (Full code) Critical Care: No Time Spent Managing Pts Care (In Minutes): 70 <Ashkan Pemberton - Last Filed: 01/21/23 01:41> Physician Review: Patient Assessed, Agree with Above Assessment and Plan <Trung Perkins - Last Filed: 01/21/23 12:17>
[2023-01-21] MEDS ORDERED: METRONIDAZOLE 500mg IVPB 500 MG/100 ML BAG IV ONE ×2 (02:21→08:29)
[2023-01-21] MEDS ORDERED: CIPROFLOXACIN 400mg IV 400 MG/200 ML BAG IV ONE ×3 (02:21→09:00)
[2023-01-21] MEDS: Ringers Lactate 1,000 ML IV SCH ×3 (04:04→16:00)
[2023-01-21] MEDS ORDERED: SODIUM CHLORIDE 0.9% 10ML INJ IV PRN (04:04)
[2023-01-21] MEDS ORDERED: ONDANSETRON 4 MG/2 ML VIAL IV PRN (04:04)
[2023-01-21 05:44] LABS: Absolute Lymphocytes (CBC) 0.9 K/uL (0.7-4.9); Hematocrit 32.6 % (36.0-45.0); Lymphocytes % 6.5 % (15.3-44.8); MCV 83.8 fL (80-100); MPV 8.5 fL (7.6-11.3); RBC Red Blood Cell Count 3.89 M/uL (3.86-4.86)
[2023-01-21 06:04] LABS: Magnesium 1.9 mg/dL (1.6-2.4); Potassium 3.8 mEq/L (3.5-5.1); Thyroid Stimulating Hormone 0.538 uIU/mL (0.358-3.740)
[2023-01-21 06:29] VITALS: BMI 36.3
[2023-01-21 06:43] LABS: Blood Morphology Comment NOT SEEN (NOT SEEN); Platelet Estimate ADEQ
[2023-01-21 07:04] LABS: C.diff Antigen/Toxin Ag neg : Tox neg (NEG : NEG)
[2023-01-21] MEDS ORDERED: PANTOPRAZOLE 40 MG INJ ONE (08:29)
[2023-01-21] MEDS ORDERED: ENOXAPARIN 40 MG/0.4 ML SQ ONE (08:29)
[2023-01-21] MEDS: METRONIDAZOLE 500mg IVPB 500 MG/100 ML BAG IV SCH ×2 (08:47→16:24)
[2023-01-21] MEDS: ENOXAPARIN 40 MG/0.4 ML SQ SCH (08:47)
[2023-01-21] MEDS: PANTOPRAZOLE 40 MG INJ IVP SCH ×2 (08:47→20:45)
[2023-01-21] MEDS ORDERED: ACETAMINOPHEN 500 MG TAB PO PRN (10:42)
[2023-01-21] MEDS ORDERED: Ringers Lactate 1,000 ML IV ONE (14:01)
[2023-01-21 16:50] VITALS: O2SAT 100
[2023-01-21] MEDS: CIPROFLOXACIN 400mg IV 400 MG/200 ML BAG IV SCH (20:45)
[2023-01-22] MEDS: METRONIDAZOLE 500mg IVPB 500 MG/100 ML BAG IV SCH ×2 (01:00→08:16)
[2023-01-22 04:08] LABS: Absolute Lymphocytes (CBC) 2.5 K/uL (0.7-4.9); Hematocrit 30.7 % (36.0-45.0); Lymphocytes % 36.8 % (15.3-44.8); MCV 84.2 fL (80-100); MPV 8.5 fL (7.6-11.3); RBC Red Blood Cell Count 3.65 M/uL (3.86-4.86)
[2023-01-22 04:25] LABS: Potassium 3.2 mEq/L (3.5-5.1)
[2023-01-22] MEDS: Ringers Lactate 1,000 ML IV SCH (04:54)
[2023-01-22] MEDS: PANTOPRAZOLE 40 MG INJ IVP SCH (08:16)
[2023-01-22] MEDS: ENOXAPARIN 40 MG/0.4 ML SQ SCH (08:16)
[2023-01-22] MEDS: CIPROFLOXACIN 400mg IV 400 MG/200 ML BAG IV SCH (08:17)
--- NOTE | 2023-01-22 08:56 | P.DS ---
Admission Date: 01/21/23 Discharge Date: 01/22/23 Disposition: ROUTINE DISCHARGE Discharge Condition: GOOD Reason for Admission: Enterocolitis Hospital Course: DIAGNOSES: # Sepsis secondary to Enterocolitis # KDIGO Stage I Acute Kidney Injury secondary to Pre-Renal # Mild Anemia - possible Iron Deficiency # Depression # Anxiety # Obesity - BMI 36.3 kg/m2 # Subcentimeter Hepatic Cysts HOSPITAL COURSE: Ms. Ronel Solano is a 32 year old female with a past medical history significant for prediabetes, obesity, depression, and anxiety who was admitted to the [facility] on 01/21/2023 for intractable nausea, vomiting, and diarrhea. She was admitted to the Medicine service. Upon further evaluation, her CT abdomen/pelvis revealed, "fluid-filled bowel, a nonspecific finding which can be seen in mild enterocolitis. No bowel thickening or obstruction. Normal appendix." She was started on IV fluids and IV antibiotics. Over the course of her hospitalization, her symptoms improved significantly. Her leukocytosis down- trended and creatinine improved. A Clostridioides Difficile stool toxin returned negative. This morning, she was able to tolerate a diet and stated that she felt back to baseline. She requested to be discharged home. On 01/22/2023, she was seen on morning rounds and deemed medically stable for discharge. She was discharged with instructions to schedule follow-up appointments with her PCP (Dr. Macias) and with Gastroenterology (Dr. Hutchison). She was provided prescriptions for ciprofloxacin and metronidazole. She was given the opportunity to ask questions and reported no further questions. Furthermore, all questions were answered to the best of my ability. A copy of this discharge summary will be sent to the above providers to facilitate continuity of care. Today, I personally spent 20 minutes on her case, of which greater than 50% of the time was spent in patient education, counseling, and coordination of care as described above. Vital Signs/Physical Exam: Temp Pulse Resp BP Pulse Ox 97.3 F 73 18 107/46 L 97 01/22/23 04:00 01/22/23 04:00 01/22/23 04:00 01/22/23 04:00 01/22/23 04:00 General: Alert, In no apparent distress, Oriented x3 HEENT: Atraumatic, Sclerae nonicteric Neck: JVD not distended Respiratory: Clear to auscultation bilaterally, Normal air movement Cardiovascular: No edema, Regular rate/rhythm, Normal S1 S2, No gallops, No rubs, No murmurs Gastrointestinal: Normal bowel sounds, Soft and benign, Non-distended, No tenderness, No rebound, No guarding Musculoskeletal: No clubbing Integumentary: No rashes Neurological: Normal speech, Normal affect Laboratory Data at Discharge: WBC 6.70 thou/uL (4.3-10.9) 01/22/23 03:44 Hgb 10.4 g/dL (12.0-15.0) L 01/22/23 03:44 Hct 30.7 % (36.0-45.0) L 01/22/23 03:44 Plt Count 273 thou/uL (152-406) 01/22/23 03:44 Sodium 140 mEq/L (136-145) 01/22/23 03:44 Potassium 3.2 mEq/L (3.5-5.1) L D 01/22/23 03:44 BUN 4 mg/dL (7-18) L 01/22/23 03:44 Creatinine 0.68 mg/dL (0.55-1.02) 01/22/23 03:44 Glucose 85 mg/dL (74-106) 01/22/23 03:44 Magnesium 2.0 mg/dL (1.6-2.4) 01/22/23 03:44 Total Bilirubin 0.6 mg/dL (0.2-1.0) 01/20/23 22:20 AST 10 U/L (15-37) L 01/20/23 22:20 ALT 20 U/L (13-56) 01/20/23 22:20 Alkaline Phosphatase 108 U/L (45-117) 01/20/23 22:20 Lipase 31 U/L (13-75) 01/20/23 22:20 Home Medications: Citalopram [Celexa*] 40 mg PO DAILY 01/21/23 Tirzepatide [Mounjaro] 10 mg SQ Q7D 01/21/23 Ciprofloxacin HCl 500 mg PO BID 7 Days #14 tab 01/22/23 metroNIDAZOLE [Metronidazole] 500 mg PO Q8H 7 Days #21 tab 01/22/23 New Medications: Ciprofloxacin HCl 500 mg PO BID 7 Days #14 tab metroNIDAZOLE [Metronidazole] 500 mg PO Q8H 7 Days #21 tab Physician Discharge Instructions: 1. Please call and schedule a follow-up appointment with your PCP (Dr. Macias) in 3-5 days - Your blood work showed that you have anemia. Please discuss with your PCP for further evaluation - Your CT scan shows cysts on your liver. Per Radiology, it is felt that these are benign cysts. Please discuss with your PCP. 2. Please call and schedule a follow-up appointment with Gastroenterology (Dr. Hutchison) in 5-7 days Diet: Regular Activity: Ad sebastián Followup: Dwight Macias MD [Primary Care Provider] - Daniele Hutchison MD [ASSOCIATE-ACTIVE - CAN ADMIT] - Time spent managing pt's care (in minutes): 20
[2023-01-22] MEDS ORDERED: POTASSIUM 25 MEQ EFFERV TAB PO ONE (09:00)
[2023-01-22 09:23] LABS: Specific Gravity 1.009 (1.005-1.030); Urine Bacteria <20 /HPF (<20); Urine Bilirubin NEGATIVE (Negative); Urine Blood Negative (Negative); Urine Clarity Turbid (Clear); Urine Color Light-Yellow (Yellow); Urine Glucose NEGATIVE (Negative); Urine Mucus 1+ /HPF (None Seen); Urine Protein NEGATIVE (Negative); Urine RBC <5 /HPF (None Seen); Urine Urobilinogen Normal (Normal); Urine pH 5.5 (5.0-7.0)
[2023-01-22 10:03] VITALS: BP 110/55; TEMP 97.9
--- NOTE | 2023-01-22 18:32 | RAD REPORT ---
EXAM DESCRIPTION: CT - Abdomen Pelvis W Contrast - 01/21/2023 6:16 am Abdomen Pelvis W Contrast CLINICAL HISTORY: 32 years Female nausea, vomiting, diarrhea TECHNIQUE: Contiguous axial images obtained through the abdomen and pelvis following intravenous con trast administration. Coronal and sagittal reformatted images provided. This CT exam was performed according to our departmental dose-optimization program, which includes on e or more of the following dose reduction techniques: automated exposure control, adjustment of the m A and/or kV according to patient size, and/or use of iterative reconstruction technique. COMPARISON: No prior exams provided for comparison. FINDINGS: The bowel is fluid-filled, a nonspecific finding which can be seen in mild enterocolitis. No bowel wall thickening, obstruction, pneumatosis, free intraperitoneal air, or ascites. Normal appe ndix. Subcentimeter hepatic cysts are benign in appearance. Borderline splenomegaly. The lung bases, biliary tree, gallbladder, pancreas, spleen, adrenal glands, kidneys, uterus, ovaries urinary bladder, and osseous structures are unremarkable. IMPRESSION: Fluid-filled bowel, a nonspecific finding which can be seen in mild enterocolitis. No susan wel wall thickening or obstruction. Normal appendix. Electronically signed by: Tabby Renee MD 01/21/2023 12:59 AM CDT
== END 2023-01-22 10:50 | disposition home or self-care (01) | DRG 872 ==
LOC: ER 20:54 → ERHOLD 01-21 01:31 → 4TH 01-21 16:13
PROVIDERS: ADMIT Internal Medicine; ATTEND Internal Medicine
DX: A41.9 Sepsis, unspecified organism (principal); N17.9 Acute kidney failure, unspecified; K52.9 Noninfective gastroenteritis and colitis, unspecified; F41.9 Anxiety disorder, unspecified; F32.A Depression, unspecified; R73.03 Prediabetes; K76.89 Other specified diseases of liver; D50.9 Iron deficiency anemia, unspecified; E66.9 Obesity, unspecified; Z68.36 Body mass index [BMI] 36.0-36.9, adult; Z87.891 Personal history of nicotine dependence; Z28.310 Unvaccinated for COVID-19; Z82.49 Family history of ischemic heart disease and other diseases of the circulatory system; Z83.3 Family history of diabetes mellitus
CPT/HCPCS: 36415; 74177; 80048; 80053; 81001; 81025; 83605; 83690; 83735; 84439; 84443; 85025; 87040; 87045; 87046; 87177; 87209; 87324; 87425; 96374; 96375; 99285; C9113; J0744; J1650; J2405; J7030; J7120; Q9967

== ENCOUNTER 2023-05-21 23:48 | Emergency (ER) | payer OTHER ==
[2023-05-22 01:11] LABS: Hematocrit 36.2 % (36.0-45.0); Lymphocytes % 31.8 % (15.3-44.8); MCV 83.1 fL (80-100); MPV 8.3 fL (7.6-11.3); Platelets 383 thou/uL (152-406); RBC Red Blood Cell Count 4.36 M/uL (3.86-4.86); Specific Gravity 1.018 (1.005-1.030)
[2023-05-22 01:15] LABS: Specific Gravity 1.018 (1.005-1.030); Urine Bacteria None Seen /HPF (<20); Urine Bilirubin NEGATIVE (Negative); Urine Blood Negative (Negative); Urine Clarity Clear (Clear); Urine Color Light-Yellow (Yellow); Urine Glucose NEGATIVE (Negative); Urine Mucus Slight /HPF (None Seen); Urine Protein NEGATIVE (Negative); Urine RBC <5 /HPF (None Seen); Urine Urobilinogen Normal (Normal); Urine pH 5.5 (5.0-7.0)
[2023-05-22 01:32] LABS: ALT/SGPT 24 U/L (13-56); AST/SGOT 18 U/L (15-37); Albumin 3.5 g/dL (3.4-5.0); Alkaline Phosphatase 109 U/L (45-117); BUN Blood Urea Nitrogen 13 mg/dL (7-18); Barbiturates NEGATIVE (NEGATIVE); Benzodiazepines NEGATIVE (NEGATIVE); Bicarbonate 28 mEq/L (21-32); Bilirubin Total 0.2 mg/dL (0.2-1.0); Cocaine NEGATIVE (NEGATIVE); Glomerular Filtration Rate 95 ml/min (=/>90); Glucose Level 90 mg/dL (74-106); METHAMPHETAM NEGATIVE (NEGATIVE); Magnesium 2.2 mg/dL (1.6-2.4); Opiates POSITIVE (NEGATIVE); Phencyclidine NEGATIVE (NEGATIVE); Potassium 3.5 mEq/L (3.5-5.1); Protein, Total 7.2 g/dL (6.4-8.2); Sodium Level 139 mEq/L (136-145); THC Cannibis NEGATIVE (NEGATIVE); Troponin High Sensitivity 3.5 pg/mL (<58.9)
[2023-05-22 01:33] LABS: Bilirubin Direct < 0.1 mg/dL (0-0.2); Bilirubin Indirect, Calculated ND mg/dL (0.2-0.8)
[2023-05-22 01:34] LABS: Methadone ND (NEGATIVE)
--- NOTE | 2023-05-22 01:53 | ER ---
Nurse's Notes [facility] Name: Ronel Solano Age: 33 yrs Sex: Female : 1990 Arrival Date: 05/21/2023 Time: 23:48 Bed 4 Private MD: Diagnosis: Chest pain, unspecified;Anxiety disorder, unspecified Presentation: 05/22 00:08 Chief complaint: Patient states: "I woke up from my sleep with bad chest pain, and as6 shortness of breath, and nausea. I just didn't feel right" at time of triage pt symptoms have improved. Coronavirus screen: At this time, the client does not indicate any symptoms associated with coronavirus-19. Ebola Screen: No symptoms or risks identified at this time. Initial Sepsis Screen: Does the patient meet any 2 criteria? No. Patient's initial sepsis screen is negative. Does the patient have a suspected source of infection? No. Patient's initial sepsis screen is negative. Risk Assessment: Do you want to hurt yourself or someone else? Patient reports no desire to harm self or others. Onset of symptoms was May 22, 2023. 00:08 Method Of Arrival: Ambulatory as6 00:08 Acuity: BARBARA 3 as6 Triage Assessment: 00:15 General: Appears in no apparent distress. comfortable, obese, Behavior is calm, bp cooperative, appropriate for age. Pain: Complains of pain in chest. Cardiovascular: Rhythm is sinus rhythm. Historical: - Allergies: 00:12 No Known Allergies; as6 - PMHx: 00:12 Anxiety; Depression; as6 - PSHx: 00:12 section; Tonsillectomy; as6 - Immunization history:: Adult Immunizations up to date. - Social history:: Smoking status: Patient denies any tobacco usage or history of. Screenin:15 [facility] ED Fall Risk Assessment (Adult) History of falling in the last 3 months, bp including since admission No falls in past 3 months (0 pts). Abuse screen: Denies threats or abuse. Denies injuries from another. Nutritional screening: No deficits noted. Tuberculosis screening: No symptoms or risk factors identified. Assessment: 00:15 General: SEE TRIAGE NOTE. bp 01:14 Reassessment: Patient appears in no apparent distress at this time. Patient is alert, bp oriented x 3, equal unlabored respirations, skin warm/dry/pink. Vital Signs: 00:08 BP 137 / 77; Pulse 67; Resp 18 S; Temp 98.1(O); Pulse Ox 100% on R/A; Weight 113.4 kg as6 (R); Height 5 ft. 3 in. (R); Pain 2/10; 01:13 BP 162 / 112; Pulse 62; Resp 15; Pulse Ox 100% ; bp 01:42 BP 128 / 64; Pulse 65; Resp 16; Pulse Ox 99% on R/A; jb4 00:08 Body Mass Index 44.29 (113.40 kg, 160.02 cm) as6 00:08 Pain Scale: Adult as6 ED Course: 00:00 Patient arrived in ED. gm2 00:02 Everett Boothe, RN is Primary Nurse. bp 00:04 Rossy Padron PA-C is PHCP. sb4 00:04 Babak Bueno MD is Attending Physician. sb4 00:12 Triage completed. as6 00:12 Arm band placed on. as6 00:15 Patient has correct armband on for positive identification. Bed in low position. Call bp light in reach. Side rails up X2. Provided Education on: N/A. Client placed on continuous cardiac and pulse oximetry monitoring. NIBP monitoring applied. 00:15 No provider procedures requiring assistance completed. Inserted saline lock: 22 gauge bp in right antecubital area, using aseptic technique. Blood collected. Patient maintains SpO2 saturation greater than 95% on room air. 00:40 XRAY Chest (1 view) In Process Unspecified. EDMS Administered Medications: No medications were administered Medication: 00:15 VIS not applicable for this client. bp Outcome: 01:52 Discharge ordered by . sb4 02:05 Patient left the ED. as6 Signatures: Dispatcher [employer] EDMS Gurdeep Mcmillan RN RN jb4 Everett Boothe, RN RN Zeus Betts RN RN as6 Rossy Padron PA-C PA-C sb4 Hallie Denton gm2
--- NOTE | 2023-05-22 01:53 | EDPHYS ---
Physician Documentation [facility] Name: Ronel Solano Age: 33 yrs Sex: Female : 1990 Arrival Date: 05/21/2023 Time: 23:48 Bed 4 Private MD: ED Physician Babak Bueno HPI: 05/22 00:12 This 33 yrs old Unknown Female presents to ER via Ambulatory with complaints of Chest sb4 Tightness, Shortness Of Breath. Historical: - Allergies: 00:12 No Known Allergies; as6 - PMHx: 00:12 Anxiety; Depression; as6 - PSHx: 00:12 section; Tonsillectomy; as6 - Immunization history:: Adult Immunizations up to date. - Social history:: Smoking status: Patient denies any tobacco usage or history of. ROS: 00:12 Constitutional: Negative for fever, chills, and weight loss, sb4 00:12 Cardiovascular: Positive for chest pain, 00:12 Respiratory: Positive for shortness of breath, 00:12 Abdomen/GI: Positive for nausea, 00:12 All other systems are negative, Exam: 00:12 Constitutional: This is a well developed, well nourished patient who is awake, alert, sb4 and in no acute distress. Head/Face: Normocephalic, atraumatic. Eyes: Extra-ocular motions intact. Periorbital areas with no swelling, redness, or edema. ENT: Mucous membranes moist. Cardiovascular: Regular rate and rhythm with a normal S1 and S2. Respiratory: Lungs have equal breath sounds bilaterally, clear to auscultation and percussion. No rales, rhonchi or wheezes noted. No increased work of breathing, no retractions or nasal flaring. Abdomen/GI: Soft, non-tender, no distension. Skin: Warm, dry with normal turgor. Normal color with no rashes, no lesions, and no evidence of cellulitis. MS/ Extremity: Pulses equal, no cyanosis. Neurovascular intact. Full, normal range of motion. Neuro: Awake and alert, GCS 15, oriented to person, place, time, and situation. Motor strength 5/5 in all extremities. Sensory grossly intact. Vital Signs: 00:08 BP 137 / 77; Pulse 67; Resp 18 S; Temp 98.1(O); Pulse Ox 100% on R/A; Weight 113.4 kg as6 (R); Height 5 ft. 3 in. (R); Pain 2/10; 01:13 BP 162 / 112; Pulse 62; Resp 15; Pulse Ox 100% ; bp 01:42 BP 128 / 64; Pulse 65; Resp 16; Pulse Ox 99% on R/A; jb4 00:08 Body Mass Index 44.29 (113.40 kg, 160.02 cm) as6 00:08 Pain Scale: Adult as6 MDM: 00:04 Patient medically screened. sb4 00:12 Differential diagnosis: anxiety, electrolyte abnormality, cardiac arrhythmia, PE, ACS. sb4 01:51 Data reviewed: vital signs, nurses notes, lab test result(s), EKG, radiologic studies, sb4 and as a result, I will discharge patient. Historians other than the Patient: Spouse/Significant Other: . Scoring Tools HEART Score: History: ECG: Age: Risk Factors: No Risk Factors Known (0), Troponin: Total Score = 0. Counseling: I had a detailed discussion with the patient and/or guardian regarding the historical points, exam findings, and any diagnostic results supporting the discharge/admit diagnosis, lab results, radiology results, to return to the emergency department if symptoms worsen or persist or if there are any questions or concerns that arise at home. 05/22 00:09 Order name: Basic Metabolic Panel; Complete Time: sb4 05/22 00:09 Order name: CBC with Diff; Complete Time: :13 sb4 05/22 00:09 Order name: D-Dimer; Complete Time: : sb4 05/22 00:09 Order name: LFT's; Complete Time: 49 sb4 05/22 00:09 Order name: Magnesium; Complete Time: :49 sb4 05/22 00:09 Order name: Troponin HS; Complete Time: :49 sb4 05/22 00:09 Order name: Test, Urine; Complete Time: :18 sb4 05/22 00:09 Order name: UAM; Complete Time: :18 sb4 05/22 00:09 Order name: UDS; Complete Time: 01:38 sb4 05/22 00:09 Order name: TSH; Complete Time: 49 sb4 05/22 01:35 Order name: T4 Free; Complete Time: 01:49 EDMS 05/22 00:09 Order name: XRAY Chest (1 view) sb4 05/22 00:09 Order name: EKG; Complete Time: 00:10 sb4 05/22 00:09 Order name: Cardiac monitoring; Complete Time: : sb4 05/22 00:09 Order name: EKG - Nurse/Tech; Complete Time: sb4 05/22 00:09 Order name: IV Saline Lock; Complete Time: : sb4 05/22 00:09 Order name: Labs collected and sent; Complete Time: 00: sb4 05/22 00:09 Order name: O2 Per Protocol; Complete Time: sb4 05/22 00:09 Order name: O2 Sat Monitoring; Complete Time: : sb4 EC:25 Rate is 68 beats/min. Rhythm is regular, Normal Sinus Rhythm. MO interval is normal at sb4 150 msec. QRS interval is normal at 80 msec. QT interval is normal at 436 msec. No Q waves. T waves are Normal. No ST changes noted. Clinical impression: Normal ECG. Interpreted by me. Reviewed by me. Administered Medications: No medications were administered Disposition Summary: 05/22/23 01:52 Discharge Ordered Notes: Location: Home sb4 Problem: new sb4 Symptoms: have improved sb4 Condition: Stable sb4 Diagnosis - Chest pain, unspecified sb4 - Anxiety disorder, unspecified sb4 Followup: sb4 - With: Emergency Department - When: As needed - Reason: Trouble breathing, Worsening of condition Discharge Instructions: - Discharge Summary Sheet sb4 - Nonspecific Chest Pain, Adult, [id number] sb4 - Panic Attack, [id number] sb4 Forms: - Medication Reconciliation Form sb4 - Thank You Letter sb4 - Antibiotic Education sb4 - Prescription Opioid Use sb4 - Patient Portal Instructions sb4 - Leadership Thank You Letter sb4 Signatures: Dispatcher [employer] Zeus Duenas, RN RN as6 Rossy Padron, PAKeely PAKeely sb4
[2023-05-22 02:12] VITALS: TEMP 98.1
[2023-05-22 02:14] VITALS: BP 128/64; O2SAT 99
--- NOTE | 2023-05-22 12:00 | RAD REPORT ---
EXAM DESCRIPTION: XR Chest, 1 View CLINICAL HISTORY: The patient is 33 years old and is Female; CHEST PAIN TECHNIQUE: Frontal view of the chest. COMPARISON: No relevant prior studies available. FINDINGS: Lungs: Mildly prominent interstitial markings. No consolidation. Pleural space: Unremarkable. No pneumothorax. Heart: Unremarkable. Mediastinum: Unremarkable. Bones/joints: No acute findings. IMPRESSION: Mildly prominent interstitial markings. No consolidation. Electronically signed by: Pablo Church MD 05/22/2023 12:51 AM CDT Due to temporary technical issues with the PACS/Fluency reporting system, reports are being signed by the in house radiologist without review as a courtesy to ensure prompt reporting. The interpreting r adiologist is fully responsible for the content of the report.
--- NOTE | 2023-05-22 12:15 | EKG ---
Test Date: 2023-05-22 Test Time: 00:23:17 Lapel Padder Blindstitch: BRII MEASUREMENT RESULTS: Intervals: Rate: 68 OK: 150 QRSD: 80 QT: 436 QTc: 463 Dixon: P: 60 OK: 150 QRS: 81 T: 55 INTERPRETIVE STATEMENTS: Normal sinus rhythm Normal ECG No previous ECG available for comparison Electronically Signed On 05-22-23 12:14:10 CDT by Jordan Hoffmann
== END 2023-05-22 02:05 | disposition home or self-care (01) ==
LOC: ER 23:48
DX: R07.89 Other chest pain (principal); F41.9 Anxiety disorder, unspecified
CPT/HCPCS: 36415; 71045; 80048; 80076; 80307; 81001; 81025; 83735; 84439; 84443; 84484; 85025; 85379; 93005; 99284

== ENCOUNTER 2024-12-17 20:17 | Emergency (ER) | payer SELFPAY ==
[2024-12-17] MEDS ORDERED: dexAMETHasone 10 MG/ML VIAL ONE (21:11)
[2024-12-17] MEDS ORDERED: DIAZEPAM 5 MG TABLET ONE (21:12)
[2024-12-17] MEDS ORDERED: HYDROCODONE/APAP 5/325 MG TAB ONE (21:12)
--- NOTE | 2024-12-17 21:26 | RAD REPORT ---
EXAMINATION: ONE VIEW CHEST XR CLINICAL INDICATION: Female, 34 years old.,PAIN TECHNIQUE: Frontal chest projection is submitted. Examination is limited by patient positioning and t echnique. COMPARISON: 05/22/2023 FINDINGS: The lungs are grossly clear although suboptimal inspiratory effort somewhat limits evaluation. No pn eumothorax or sizable effusion. The heart is normal in size. Mediastinal contours are unremarkable. IMPRESSION: No acute intrathoracic abnormalities.
--- NOTE | 2024-12-17 21:26 | RAD REPORT ---
EXAMINATION: XR LEFT SHOULDER CLINICAL INDICATION: Female, 34 years old. PAIN TECHNIQUE: Internal and external AP view radiograph of the left shoulder were obtained. COMPARISON: No prior exam. FINDINGS: No evidence of fracture or dislocation. Normal alignment. No evidence of arthropathy or oth er focal bone lesion. Soft tissues are unremarkable. IMPRESSION: No acute or significant abnormalities.
--- NOTE | 2024-12-17 21:37 | EDPHYS ---
Physician Documentation [facility] Name: Ronel Solano Age: 34 yrs Sex: Female : 1990 Arrival Date: 12/17/2024 Time: 20:17 Bed 17 Private MD: ED Physician Marc Millan HPI: 12/17 21:45 This 34 yrs old Unknown Female presents to ER via Ambulatory with complaints of Chest kb Pain, Shoulder Pain, Shortness Of Breath. 21:45 Pt is a 34 year old female who presents for left shoulder pain that radiates into kb chest. States pain started last night and has been constant through today. Reports pain aggravated by deep breath and movement. 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 - Infectious Disease History:: Denies. - Social history:: Smoking status: Patient denies any tobacco usage or history of. ROS: 21:20 Constitutional: As per HPI kb Exam: 21:20 Constitutional: This is a well developed, well nourished patient who is awake, alert, kb and in no acute distress. Head/Face: Normocephalic, atraumatic. ENT: Moist Mucous membranes Cardiovascular: Regular rate Respiratory: Respirations even and unlabored. No increased work of breathing. Talking in full sentences Skin: Warm, dry with normal turgor. Normal color. Neuro: Awake and alert, GCS 15, oriented to person, place, time, and situation. 21:20 ECG was reviewed by the Attending Physician. 21:42 Musculoskeletal/extremity: Extremities: grossly normal except: noted in the left kb clavicle and anterior aspect of left shoulder: tenderness, ROM: limited active range of motion due to pain, Circulation is intact in all extremities. Sensation intact. Vital Signs: 20:24 BP 154 / 95; Pulse 88; Resp 18; Temp 98.5; Pulse Ox 100% ; Weight 127.01 kg; Height 5 cp4 ft. 3 in. ; Pain 7/10; 21:41 BP 118 / 65; Pulse 75; Resp 16; Pulse Ox 99% on R/A; dd2 20:24 Body Mass Index 49.60 (127.01 kg, 160.02 cm) cp4 20:24 Pain Scale: Adult cp4 [place] Coma Score: 21:32 Eye Response: spontaneous(4). Motor Response: obeys commands(6). Verbal Response: al5 oriented(5). Total: 15. MDM: 20:23 Medical Screening Exam initiated kb 21:42 Data reviewed: vital signs, nurses notes. kb 21:43 Differential diagnosis: arrhythmia, acute mi, strain, fracture. Test considered but Not kb performed: Labs: cbc, cmp, troponin considered but pain is to left shoulder, worse with movement and deep breath, normal ekg. Counseling: I had a detailed discussion with the patient and/or guardian regarding the historical points, exam findings, and any diagnostic results supporting the discharge/admit diagnosis, radiology results, the need for outpatient follow up, a family practitioner, to return to the emergency department if symptoms worsen or persist or if there are any questions or concerns that arise at home. 12/17 20:27 Order name: Chest Single View XRAY; Complete Time: 21:30 kb 12/17 20:27 Order name: Shoulder Left (2 View) XRAY; Complete Time: 21:30 kb 12/17 21:08 Order name: EKG; Complete Time: 21:09 kb 12/17 21:08 Order name: EKG - Nurse/Tech; Complete Time: 21:33 kb EC:20 Rate is 79 beats/min. Rhythm is regular. QRS [place] is Normal. [place] interval is normal at kb 146 msec. QRS interval is normal at 84 msec. QT interval is normal at 442 msec. Administered Medications: 21:21 Drug: HYDROcodone-acetaminophen PO 5 mg-325 mg 1 tabs PO once Route: PO; dd2 21:42 Follow up: Response: No adverse reaction dd2 21:21 Drug: Dexamethasone IM 10 mg IM once Route: IM; Site: right ventrogluteal; dd2 21:42 Follow up: Response: No adverse reaction dd2 21:22 Drug: Diazepam PO 5 mg PO once Route: PO; dd2 21:42 Follow up: Response: No adverse reaction dd2 Disposition: 12/18 02:11 Co-signature as Attending Physician, Marc Millan MD I agree with the assessment sp4 and plan of care. I reviewed the patient's care provided by the Advanced Practice Provider and agree with the diagnosis and treatment plan. Disposition Summary: 12/17/24 21:37 Discharge Ordered Notes: Location: Home kb Condition: Stable kb Diagnosis - Pain in left shoulder kb Followup: kb - With: Emergency Department - When: As needed - Reason: Worsening of condition Followup: kb - With: Private Physician - When: 2 - 3 days - Reason: Recheck today's complaints, Continuance of care, Re-evaluation by your physician Discharge Instructions: - Discharge Summary Sheet kb - Shoulder Pain, [id number] kb Forms: - Medication Reconciliation Form kb - Antibiotic Education kb - Prescription Opioid Use kb - Patient Portal Instructions kb - Leadership Thank You Letter kb Prescriptions: - Prednisone 20 mg Oral Tablet - take 1 tablet ORAL route once daily for 5 days; 5 tablet; Refills: 0, Product kb Selection Permitted - Diclofenac Sodium 75 mg Oral tablet, delayed release (enteric coated) - take 1 tablet ORAL route 2 times per day As needed; 30 tablet; Refills: 0, kb Product Selection Permitted - orphenadrine citrate 100 mg Oral Tablet Sustained Release - take 1 tablet ORAL route 2 times per day As needed; 20 tablet; Refills: 0, kb Product Selection Permitted Signatures: Dispatcher [employer] EDMS Lacie Schulz, CHASITY-Praveen GASPAR-Macr Sanders MD MD sp4 Nicol Dahl cp4 STACY ORTIZ RN RN dd2 Corrections: (The following items were deleted from the chart) 12/17 21:43 21:20 Constitutional: This is a well developed, well nourished patient who is awake, kb alert, and in no acute distress. Head/Face: Normocephalic, atraumatic. ENT: Moist Mucous membranes Cardiovascular: Regular rate Respiratory: Respirations even and unlabored. No increased work of breathing. Talking in full sentences Skin: Warm, dry with normal turgor. Normal color. MS/ Extremity: Pulses equal, no cyanosis. Neurovascular intact. Full, normal range of motion. Neuro: Awake and alert, GCS 15, oriented to person, place, time, and situation. kb
--- NOTE | 2024-12-17 21:37 | ER ---
Nurse's Notes [facility] Name: Ronel Solano Age: 34 yrs Sex: Female : 1990 Arrival Date: 12/17/2024 Time: 20:17 Bed 17 Private MD: Diagnosis: Pain in left shoulder Presentation: 12/17 20:24 Chief complaint: Patient states: left shoulder pain that started last night. States cp4 pain is radiating into her chest. Coronavirus screen: Client denies travel out of the [place] in the last 14 days. At this time, the client does not indicate any symptoms associated with coronavirus-19. Ebola Screen: Patient negative for fever greater than or equal to 101.5 degrees Fahrenheit, and additional compatible Ebola Virus Disease symptoms Patient denies exposure to infectious person. Patient denies travel to an Ebola-affected area in the 21 days before illness onset. No symptoms or risks identified at this time. Initial Sepsis Screen: Does the patient meet any 2 criteria? No. Patient's initial sepsis screen is negative. Does the patient have a suspected source of infection? No. Patient's initial sepsis screen is negative. Risk Assessment: Do you want to hurt yourself or someone else? Patient reports no desire to harm self or others. Onset of symptoms was December 16, 2024. 20:24 Method Of Arrival: Ambulatory cp4 20:24 Acuity: BARBARA 3 cp4 Triage Assessment: 20:25 General: Appears in no apparent distress. uncomfortable, Behavior is calm, cooperative, cp4 appropriate for age. Pain: Complains of pain in left shoulder Pain radiates to chest Pain currently is 7 out of 10 on a pain scale. Cardiovascular: Patient's skin is warm and dry. 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 - Infectious Disease History:: Denies. - Social history:: Smoking status: Patient denies any tobacco usage or history of. Screenin:32 [facility] ED Fall Risk Assessment (Adult) History of falling in the last 3 months, al5 including since admission No falls in past 3 months (0 pts) Confusion or Disorientation No (0 pts) Intoxicated or Sedated No (0 pts) Impaired Gait No (0 pts) Mobility Assist Device Used No (0 pt) Altered Elimination No (0 pt) Score/Fall Risk Level 0 - 2 = Low Risk Oriented to surroundings, Maintained a safe environment, Educated pt \T\ family on fall prevention, incl call for assistance when getting out of bed, Assessed \T\ reinforced patient's understanding of fall precautions, Hourly rounding (assess needs \T\ fall precautionary measures) done. Abuse screen: Denies threats or abuse. Denies injuries from another. Nutritional screening: No deficits noted. Tuberculosis screening: No symptoms or risk factors identified. Assessment: 21:17 General: Appears in no apparent distress. Behavior is calm, cooperative, appropriate dd2 for age. Pain: Complains of pain in chest and anterior aspect of left shoulder Pain radiates to chest Pain began 2-3 days ago. Neuro: No deficits noted. Cardiovascular: Reports chest pain, Patient's skin is warm and dry. Rhythm is sinus rhythm. Respiratory: Airway is patent Respiratory effort is even, unlabored, Respiratory pattern is regular, symmetrical. GI: No deficits noted. No signs and/or symptoms were reported involving the gastrointestinal system. Abdomen is non-distended, obese. : No deficits noted. No signs and/or symptoms were reported regarding the genitourinary system. EENT: No deficits noted. No signs and/or symptoms were reported regarding the EENT system. Derm: No deficits noted. No signs and/or symptoms reported regarding the dermatologic system. Musculoskeletal: No deficits noted. No signs and/or symptoms reported regarding the musculoskeletal system. Circulation, motion, and sensation intact. Range of motion: intact in all extremities. Vital Signs: 20:24 BP 154 / 95; Pulse 88; Resp 18; Temp 98.5; Pulse Ox 100% ; Weight 127.01 kg; Height 5 cp4 ft. 3 in. ; Pain 7/10; 21:41 BP 118 / 65; Pulse 75; Resp 16; Pulse Ox 99% on R/A; dd2 20:24 Body Mass Index 49.60 (127.01 kg, 160.02 cm) cp4 20:24 Pain Scale: Adult cp4 [place] Coma Score: 21:32 Eye Response: spontaneous(4). Motor Response: obeys commands(6). Verbal Response: al5 oriented(5). Total: 15. ED Course: 20:21 Patient arrived in ED. im 20:23 Lacie Schulz FNP-C is [facility]. kb 20:23 Marc Millan MD is Attending Physician. kb 20:25 Triage completed. cp4 20:25 Arm band placed on right wrist. Patient placed in an exam room. cp4 20:48 Chest Single View XRAY In Process Unspecified. EDMS 20:48 Shoulder Left (2 View) XRAY In Process Unspecified. EDMS 21:17 Patient did not have IV access during this emergency room visit. dd2 21:21 STACY ORTIZ, RN is Primary Nurse. dd2 21:31 No provider procedures requiring assistance completed. EKG done, by ED staff, reviewed al5 by Lacie LU. Patient maintains SpO2 saturation greater than 95% on room air. 21:32 Patient has correct armband on for positive identification. Bed in low position. Call al5 light in reach. Side rails up X 1. Client placed on continuous cardiac and pulse oximetry monitoring. NIBP monitoring applied. Door closed. Noise minimized. Pillow given. Verbal reassurance given. 21:46 Provided Education on: D/C EDUCATION. dd2 Administered Medications: 21:21 Drug: HYDROcodone-acetaminophen PO 5 mg-325 mg 1 tabs PO once Route: PO; dd2 21:42 Follow up: Response: No adverse reaction dd2 21:21 Drug: Dexamethasone IM 10 mg IM once Route: IM; Site: right ventrogluteal; dd2 21:42 Follow up: Response: No adverse reaction dd2 21:22 Drug: Diazepam PO 5 mg PO once Route: PO; dd2 21:42 Follow up: Response: No adverse reaction dd2 Medication: 21:32 VIS not applicable for this client. al5 Outcome: 21:37 Discharge ordered by . kb 21:46 Discharged to home ambulatory, dd2 21:46 Condition: stable 21:46 Discharge instructions given to patient, Instructed on discharge instructions, follow up and referral plans. medication usage, Demonstrated understanding of instructions, follow-up care, medications, Prescriptions given X 3, 22:10 Patient left the ED. dd2 Signatures: Dispatcher [employer] EDFL Lacie Schulz FNP-C FNP-Ckb Vilma Torres Christina cp4 Juanita Yung, RN RN al5 STACY ORTIZ RN RN dd2
[2024-12-18 06:06] VITALS: TEMP 98.5
[2024-12-18 06:08] VITALS: BP 118/65; O2SAT 99
--- NOTE | 2024-12-19 11:46 | EKG ---
Test Date: 2024-12-17 Test Time: 21:18:23 [place] Coroner: LEOPOLDO MEASUREMENT RESULTS: Intervals: Rate: 79 MT: 146 QRSD: 84 QT: 386 QTc: 442 Shattuck: P: 48 MT: 146 QRS: 78 T: 54 INTERPRETIVE STATEMENTS: Normal sinus rhythm Normal ECG Compared to ECG 05/22/2023 00:23:17 No significant changes Electronically Signed On 12-19-24 11:42:13 CDT by Jagdish Lawson
== END 2024-12-17 22:10 | disposition home or self-care (01) ==
LOC: ER 20:17
DX: M25.512 Pain in left shoulder (principal)
CPT/HCPCS: 71045; 93005; 96372; 99284; J1100

== ENCOUNTER 2025-04-02 08:39 | Emergency (ER) | payer SELFPAY ==
--- NOTE | 2025-04-02 09:56 | RAD REPORT ---
EXAMINATION: Tib Fib Left VIEWS: Two views CLINICAL INDICATION: Female, 34 years old. PAIN COMPARISON: No prior exam. IMPRESSION: No acute fracture. No acute soft tissue abnormality. No radiopaque foreign body.
--- NOTE | 2025-04-02 09:57 | RAD REPORT ---
Extremity Venous Uni Ltd CLINICAL INDICATION: Female, 34 years old.Pain;Swelling TECHNIQUE: Complete duplex sonography of the lower extremity veins was performed of the affected limb . The examination included compression for vein patency, color Doppler imaging and flow augmentation in response to distal compression of the distal external iliac, common femoral, femoral, popliteal, peroneal, tibial and great saphenous veins. [id number]. COMPARISON: No prior exams FINDINGS: Duplex sonography imaging demonstrates all deep veins examined to be fully compressible with spontane ous, phasic and augmented flow in the affected limb. IMPRESSION: No evidence of deep venous thrombosis in the left lower extremity.
--- NOTE | 2025-04-02 10:05 | EDPHYS ---
Physician Documentation [facility] Name: Ronel Solano Age: 34 yrs Sex: Female : 1990 Arrival Date: 04/02/2025 Time: 08:39 Bed 20 Private MD: ED Physician Babak Bueno HPI: 04/02 08:50 This 34 yrs old Female presents to ER via Unassigned with complaints of Leg Pain, Leg sb4 Swelling. 08:50 Patient reports pain in her left calf for about 2 days now, got worse last night. sb4 States it feels like there is "she denies any injury, recent travel, or prolonged immobilization. Does not smoke nor is on any form of control. Denies any history of blood clots or bleeding disorders. Denies any chest pain or shortness of breath. Historical: - Allergies: 08:43 No Known Drug Allergies; ll1 - PMHx: 08:43 Anxiety; Depression; ll1 - PSHx: 08:43 section; Tonsillectomy; ll1 - Immunization history:: Adult Immunizations up to date. - Infectious Disease History:: Denies. - Social history:: Smoking status: Patient denies any tobacco usage or history of. ROS: 08:50 Constitutional: Negative for fever, chills, and weight loss, sb4 08:50 MS/extremity: Positive for pain, swelling, of the left calf, 08:50 All other systems are negative, Exam: 08:50 Constitutional: This is a well developed, well nourished patient who is awake, alert, sb4 and in no acute distress. Head/Face: Normocephalic, atraumatic. Eyes: Extra-ocular motions intact. Periorbital areas with no swelling, redness, or edema. ENT: Mucous membranes moist. Respiratory: No increased work of breathing, no retractions or nasal flaring. Skin: Warm, dry with normal turgor. Normal color with no rashes, no lesions, and no evidence of cellulitis. 08:50 Musculoskeletal/extremity: Circulation is intact in all extremities. Pulses: are normal with no appreciated deficits, Sensation intact. DVT Exam: no swelling, negative Homans' sign noted on exam, no appreciated bluish discoloration, no erythema, no increased warmth, pain, tenderness, of the left leg, Vital Signs: 08:50 BP 134 / 87; Pulse 69; Resp 18; Temp 99; Pulse Ox 99% ; Weight 122.47 kg; Height 5 ft. db 3 in. ; 09:00 BP 145 / 92; Pulse 77; Resp 16; Pulse Ox 97% ; db 10:00 BP 134 / 87; Pulse 67; Resp 16; Pulse Ox 99% ; db 08:50 Body Mass Index 47.83 (122.47 kg, 160.02 cm) db MDM: 08:43 Medical Screening Exam initiated sb4 08:52 Differential diagnosis: DVT, muscle strain, stress fracture. sb4 10:04 Data reviewed: vital signs, nurses notes, radiologic studies, and as a result, I will sb4 discharge patient. Counseling: I had a detailed discussion with the patient and/or guardian regarding the historical points, exam findings, and any diagnostic results supporting the discharge/admit diagnosis, radiology results, the need for outpatient follow up, for definitive care, to return to the emergency department if symptoms worsen or persist or if there are any questions or concerns that arise at home. 04/02 08:49 Order name: Extremity Venous Uni Ltd US; Complete Time: 10:00 sb4 04/02 08:49 Order name: Tib Fib Left XRAY; Complete Time: 09:56 sb4 04/02 10:04 Order name: Alec wrap-joint: left calf; Complete Time: 10:19 sb4 Administered Medications: No medications were administered Disposition: 14:39 Co-signature as Attending Physician, Babak Bueno MD I agree with the assessment and jenniffer plan of care. Disposition Summary: 04/02/25 10:05 Discharge Ordered Notes: Location: Home sb4 Problem: new sb4 Symptoms: have improved sb4 Condition: Stable sb4 Diagnosis - Pain in left leg sb4 Followup: sb4 - With: Emergency Department - When: As needed - Reason: Trouble breathing, Worsening of condition Discharge Instructions: - Discharge Summary Sheet sb4 - Musculoskeletal Pain sb4 - Muscle Strain, [id number] sb4 Forms: - Patient Portal Instructions sb4 - Leadership Thank You Letter sb4 Prescriptions: - Ibuprofen 800 mg Oral Tablet - take 1 tablet ORAL route every 8 hours As needed take with food; 30 tablet; sb4 Refills: 0, Product Selection Permitted - Cyclobenzaprine 10 mg Oral Tablet - take 1 tablet ORAL route every 8 hours As needed; 30 tablet; Refills: 0, sb4 Product Selection Permitted Signatures: Dispatcher [employer] Babak Barragan MD MD cha Lewis, Lynsay, RN RN ll1 Mary Ellen Mora RN RN Rossy Sexton, OPAL JOSEPH sb4
--- NOTE | 2025-04-02 10:05 | ER ---
Nurse's Notes [facility] Name: Ronel Solano Age: 34 yrs Sex: Female : 1990 Arrival Date: 04/02/2025 Time: 08:39 Bed 20 Private MD: Diagnosis: Pain in left leg Presentation: 04/02 08:50 Chief complaint: Patient states: 2 DAYS L LEG PAIN, WORSE LAST NIGHT AND MORNING. db Coronavirus screen: Client denies travel out of the [place] in the last 14 days. At this time, the client does not indicate any symptoms associated with coronavirus-19. Ebola Screen: Patient negative for fever greater than or equal to 101.5 degrees Fahrenheit, and additional compatible Ebola Virus Disease symptoms Patient denies exposure to infectious person. Patient denies travel to an Ebola-affected area in the 21 days before illness onset. No symptoms or risks identified at this time. Initial Sepsis Screen: Does the patient meet any 2 criteria? No. Patient's initial sepsis screen is negative. Does the patient have a suspected source of infection? No. Patient's initial sepsis screen is negative. Risk Assessment: Do you want to hurt yourself or someone else? Patient reports no desire to harm self or others. Onset of symptoms was April 01, 2025. 08:50 Method Of Arrival: Ambulatory db 08:50 Acuity: BARBARA 3 db 09:13 Acuity: BARBARA 3 ll1 09:13 Method Of Arrival: Ambulatory ll1 Triage Assessment: 08:50 General: Appears in no apparent distress. comfortable, Behavior is calm, cooperative. db Pain: Complains of pain in left leg. Neuro: Level of Consciousness is awake, alert, obeys commands, Oriented to person, place, time, situation. Respiratory: Airway is patent Respiratory effort is even, unlabored, Respiratory pattern is regular, symmetrical. Historical: - Allergies: 08:43 No Known Drug Allergies; ll1 - PMHx: 08:43 Anxiety; Depression; ll1 - PSHx: 08:43 section; Tonsillectomy; ll1 - Immunization history:: Adult Immunizations up to date. - Infectious Disease History:: Denies. - Social history:: Smoking status: Patient denies any tobacco usage or history of. Screenin:30 [facility] ED Fall Risk Assessment (Adult) History of falling in the last 3 months, db including since admission No falls in past 3 months (0 pts) Confusion or Disorientation No (0 pts) Intoxicated or Sedated No (0 pts) Impaired Gait No (0 pts) Mobility Assist Device Used No (0 pt) Altered Elimination No (0 pt) Score/Fall Risk Level 0 - 2 = Low Risk Oriented to surroundings, Maintained a safe environment. Abuse screen: Denies threats or abuse. Denies injuries from another. Nutritional screening: No deficits noted. Tuberculosis screening: No symptoms or risk factors identified. Assessment: 09:00 Reassessment: Patient appears in no apparent distress at this time. Patient and/or db family updated on plan of care and expected duration. Pain level reassessed. Patient is alert, oriented x 3, equal unlabored respirations, skin warm/dry/pink. General: Appears in no apparent distress. comfortable, Behavior is calm, cooperative. 10:00 Reassessment: Patient appears in no apparent distress at this time. No changes from db previously documented assessment. Patient is alert, oriented x 3, equal unlabored respirations, skin warm/dry/pink. General: Appears in no apparent distress. comfortable, Behavior is calm, cooperative. Neuro: Level of Consciousness is awake, alert, obeys commands, Oriented to person, place, time, situation. Respiratory: Airway is patent Respiratory effort is even, unlabored, Respiratory pattern is regular, symmetrical. 10:20 Reassessment: Patient appears in no apparent distress at this time. Patient and/or db family updated on plan of care and expected duration. Pain level reassessed. Patient is alert, oriented x 3, equal unlabored respirations, skin warm/dry/pink. General: Appears in no apparent distress. comfortable, Behavior is calm, cooperative. Vital Signs: 08:50 BP 134 / 87; Pulse 69; Resp 18; Temp 99; Pulse Ox 99% ; Weight 122.47 kg; Height 5 ft. db 3 in. ; 09:00 BP 145 / 92; Pulse 77; Resp 16; Pulse Ox 97% ; db 10:00 BP 134 / 87; Pulse 67; Resp 16; Pulse Ox 99% ; db 08:50 Body Mass Index 47.83 (122.47 kg, 160.02 cm) db ED Course: 08:42 Patient arrived in ED. im 08:42 Rossy Padron PA-C is PHCP. sb4 08:42 Babak Bueno MD is Attending Physician. sb4 08:43 Arm band placed on Patient placed in an exam room, on a stretcher. ll1 09:04 Mary Ellen Mora, RN is Primary Nurse. db 09:04 Patient taken to ultrasound. db 09:13 Triage completed. ll1 09:23 Extremity Venous Uni Ltd US In Process Unspecified. EDMS 09:45 Alec wrap to left leg and left calf. db 09:49 Tib Fib Left XRAY In Process Unspecified. EDMS 10:15 No provider procedures requiring assistance completed. Patient did not have IV access db during this emergency room visit. 10:20 Patient has correct armband on for positive identification. Bed in low position. Call db light in reach. Side rails up X 1. Provided Education on: DC AND FOLLOWUP. Pulse ox on. NIBP on. Warm blanket given. Pillow given. Administered Medications: No medications were administered Medication: 10:20 VIS not applicable for this client. db Outcome: 10:05 Discharge ordered by . sb4 10:20 Discharged to home ambulatory, with family, db 10:20 Condition: stable 10:20 Discharge instructions given to patient, Instructed on discharge instructions, follow up and referral plans. Prescriptions given X 2, 10:38 Patient left the ED. db Signatures: Dispatcher [employer] Lis Kelly, RN RN ll1 Mary Ellen Mora, RN RN Rossy Sexton, PA-C PA-C sb4 Vilma Torres
[2025-04-02 16:53] VITALS: TEMP 99
[2025-04-02 16:56] VITALS: BP 134/87; O2SAT 99
== END 2025-04-02 10:38 | disposition home or self-care (01) ==
LOC: ER 08:39
DX: M79.662 Pain in left lower leg (principal)
CPT/HCPCS: 93971